=== PATIENT | female | born 1985 | race Caucasian/White ===

== ENCOUNTER 2016-10-11 14:07 | Emergency (ER) | payer OTHER ==
[~2016-10-11 14:07] MED LIST: ACET25TA PO; ACET50CA PO; ADV100INH INH; ALBU17IN INH; AUGM875T27 PO; BENA25CA2 PO; CIPR-250 PO; FAMO1TAB11 PO; FEXO180T58 PO; FLUTISP; IBUP200C PO; KEPP500T6 PO; METF500T PO; TOPA25TA10 PO; TRAZ50TA4 PO; VICO5TAB16 PO; [UNRECOGNIZED DRUG - OTHER] PO
[2016-10-11] MEDS ORDERED: IPRATROPIUM 0.5MG/ALBUTEROL 2.5MG INH SOL UD 3ML (DUONEB)(J7620) As Ordered ONE (14:53)
--- NOTE | 2016-10-11 14:53 | REP ---
Chest x-ray: Two views. History: Fever and cough. Findings: The lungs are exposed at a somewhat lesser inspiratory level than on the comparison study June 02, 2016. No infiltrate is seen. Pleural angles are sharp. Heart size is normal. Pulmonary vasculature is not increased. Impression: No active disease. Signed by Jay Acuña MD 10/11/2016 02:44 P
[2016-10-11] MEDS ORDERED: ONDANSETRON 4MG/2ML VIAL (J2405) As Ordered ONE (14:56)
[2016-10-11] MEDS ORDERED: methylPREDNISolone INJ 125 MG/2 ML VIAL (J2930) As Ordered ONE (14:56)
[2016-10-11 15:33] LABS: BASO % 0.5 % (0.0-1.0); EOS # 0.2 K/mm3 (0.0-0.50); EOS % 2.6 % (0.0-3.0); LARGE UNSTAINED CELL # 0.2 K/mm3 (0.0-0.4); LARGE UNSTAINED CELL % 3.5 % (0.0-4.0); LYMPH # 1.4 K/mm3 (1.5-6.5); LYMPH % 21.2 % (24.0-44.0); MEAN CORPUSCULAR HEMOGLOBIN 28.1 pg (27.0-33.0); MEAN CORPUSCULAR HGB CONC 32.7 g/dl (32.0-36.5); MONO # 0.4 K/mm3 (0.0-0.8); MONO % 5.7 % (0.0-5.0); NEUTROPHILS # 4.3 K/mm3 (1.8-7.7); NEUTROPHILS % 66.6 % (36.0-66.0); PLATELET COUNT, AUTOMATED 212 k/mm3 (150-450); RED CELL DISTRIBUTION WIDTH 13.4 % (11.5-14.5); WHITE BLOOD COUNT 6.4 K/mm3 (4.0-10.0)
[2016-10-11] MEDS ORDERED: ACETAMINOPHEN 325 MG TAB As Ordered ONE (15:42)
[2016-10-11 15:49] LABS: ANION GAP 12 MEQ/L (8-16); BLOOD UREA NITROGEN 9 MG/DL (7-18); CARBON DIOXIDE LEVEL 26 MEQ/L (21-32); CHLORIDE LEVEL 102 MEQ/L (98-107); CREATININE FOR GFR 1.06 MG/DL (0.55-1.02); GLOMERULAR FILTRATION RATE > 60.0 (>60); GLUCOSE, FASTING 99 MG/DL (70-105); POTASSIUM SERUM 3.8 MEQ/L (3.5-5.1); SODIUM LEVEL 140 MEQ/L (136-145)
--- NOTE | 2016-10-11 16:06 | EDDOCDS ---
Physician Documentation [facility] Name: Erma Carter Age: 31 yrs Sex: Female : 1985 Arrival Date: 10/11/2016 Time: 14:07 Bed I3 / M3 Private MD: Jennifer Veloz NP Disposition: 10/11/16 15:54 Discharged to Home/Self Care. Impression: Unspecified asthma with (acute) exacerbation, Viral infection of unspecified site, Fever presenting with conditions classified elsewhere, Cough, Acute bronchospasm. - Condition is Stable. - Discharge Instructions: Asthma, Adult, Bronchospasm, Adult, Fever, Adult, Cough, Adult, [id number], How to Use a Nebulizer. - Prescriptions for Prednisone 20 mg Oral Tablet - take 3 tablets by ORAL route once daily for 4 days START ON 10/12/16; 12 tablet. Albuterol Sulfate 2.5 mg /3 mL (0.083 %) Inhalation Solution for Nebulization - inhale 1 unit by NEBULIZATION route 3-4 times daily As needed; 1 box. Home Nebulizer - Dx: ACUTE BRONCHOSPASM. Duration: PRN. benzonatate 200 mg Oral Capsule - take 1 capsule by ORAL route 3 times per day As needed; 30 capsule. - Medication Reconciliation, Local Pharmacy Hours form. - Follow up: Emergency Department; When: As needed; Reason: Worsening of conditions. Follow up: Private Physician; When: 2 - 3 days; Reason: Wound/Symptom Recheck, Recheck today's complaints, Continuance of care. - Problem is new. - Symptoms have improved. Historical: - Allergies: Latex (Anaphylaxis); - Home Meds: 1. diphenhydramine HCl 25 mg Oral cap 1 cap nightly 2. fexofenadine 180 mg Oral tab 1 tab once daily 3. levetiracetam 500 mg oral tab 1 tab 2 times per day 4. metformin 500 mg Oral tab 1 tab daily 5. trazodone 50 mg Oral tab 1 tab nightly 6. Tylenol 325 mg Oral tab 2 tabs every 4-6 hours as needed 7. Ventolin HFA 90 mcg/actuation Nebulizer HFAA 2 puffs every 4 hours as needed 8. acetazolamide 500 mg Oral cpER 1 cap once daily - PMHx: Asthma; Migraines; PCOS; psuedo tumor cerebri; Seasonal Allergies; hematoma (March 2015); - PSHx: brain surgery; - Social history: Smoking status: Patient states former smoker of tobacco. No barriers to communication noted, The patient speaks fluent Croatian, Speaks appropriately for age. - Family history: No immediate family members are acutely ill. - : The pt / caregiver states he / she is not on anticoagulants. Home medication list is obtained from the patient. - Exposure Risk Screening:: None identified. 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 2 in. (157.48 cm) (R); Pain 4/10; 15:57 BP 122 / 69; Pulse 92; Resp 18; Temp 97.6(O); Pulse Ox 98% on R/A; Pain 3/10; ct3 14:09 Body Mass Index 49.38 (122.47 kg, 157.48 cm) gr2 MDM: 14:36 IV Saline Lock ordered. dt4 14:36 Solu-MEDROL 125 mg IVP once ordered. dt4 14:36 Albuterol-Ipratropium 3 ml Inhalation once ordered. dt4 14:36 Ondansetron 4 mg IVP once ordered. dt4 14:36 Obtain sample by nasopharyngeal swab ordered. dt4 14:37 Chest, 2 View (pa\E\lat) Ordered. EDMS 14:37 CBC with Diff Ordered. EDMS 14:37 Basic Metabolic Profile Ordered. EDMS 14:37 -Influenza A&B Rapid Antigen - Nose Ordered. EDMS 14:38 Call Respiratory ordered. dt4 14:41 Call Respiratory complete. ct3 15:27 Financial registration complete. gjb 15:39 CBC with Diff Reviewed. dt4 15:39 -Influenza A&B Rapid Antigen - Nose Reviewed. dt4 15:39 Chest, 2 View (pa\E\lat) Reviewed. dt4 15:39 Acetaminophen Tablet 975 mg PO once ordered. dt4 15:51 [facility] Payment Agreement was scanned into [employer] and attached to record. gjb Administered Medications: 14:56 Drug: Albuterol-Ipratropium 3 ml [ipratropium-albuterol 0.5 mg-3 mg(2.5 mg base)/3 mL lb nebulization soln (3 mL)] Route: Inhalation; 15:10 Follow up: Response: Nebulizer completed; No significant change. lb 15:22 Drug: Ondansetron 4 mg [ondansetron HCl 2 mg/mL intravenous solution (2 mL)] Route: mb9 IVP; Site: left antecubital; 15:23 Drug: Solu-MEDROL 125 mg [Solu-Medrol 500 mg intravenous solution (125 mg)] Route: IVP; mb9 Site: left antecubital; 15:44 Drug: Acetaminophen 975 mg [acetaminophen 325 mg tablet (3 tabs)] Route: PO; dls Signatures: Dispatcher MedHost Liliane Hendrix RN RN dls Brenda Dennison RN RN kr3 Ann Nguyne, SUPPORTIVE EMPLOYMENT CASE MANAGER SUPPORTIVE EMPLOYMENT CASE MANAGER ct3 Ayana Higgins PA-C PANedra dt4 Yuri Hidalgo RN RN mario9 Lilliam Pickett Lindsay lb The chart was reviewed and I authenticate all verbal orders and agree with the evaluation and treatment provided.Attachments: 15:51 [facility] Payment Agreement torey MTDD
--- NOTE | 2016-10-11 16:06 | EDDOCDS ---
Nurse's Notes [facility] Name: Erma Carter Age: 31 yrs Sex: Female : 1985 Arrival Date: 10/11/2016 Time: 14:07 Bed I3 / M3 Private MD: Jennifer Veloz NP Diagnosis: Unspecified asthma with (acute) exacerbation;Viral infection of unspecified site;Fever presenting with conditions classified elsewhere;Cough;Acute bronchospasm Presentation: 10/11 14:15 Presenting complaint: Patient states: not feeling well for several days with nausea and kr3 vomiting. States probably has the flu. Adult Sepsis Screening: The patient does not have new or worsening altered mentation. Patient's respiratory rate is less than 22. Systolic blood pressure is greater than 100. Patient has a qSOFA score of 0- Negative Sepsis Screen. Suicide/Homicide risk assessment- the patient denies having any suicidal and/or homicidal ideations and does not present with any other emotional, behavioral or mental health complaints. Status: Patient is not a government service executive or dependent. Transition of care: patient was not received from another setting of care. 14:15 Acuity: JAISON Level 3 kr3 14:15 Method Of Arrival: Ambulance kr3 Triage Assessment: 14:17 General: Appears in no apparent distress, comfortable, Behavior is cooperative. Pain: kr3 Location: chest Pain currently is 5 out of 10 on a pain scale. HIV screening NA for this visit Offered previously. Neurological: Level of Consciousness is awake, alert. Respiratory: Airway is patent Respiratory effort is even, unlabored, Reports cough that is pain with cough. Derm: Skin is normal. 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 diphenhydramine HCl 25 mg Oral cap 1 cap nightly 2. fexofenadine 180 mg Oral tab 1 tab once daily 3. levetiracetam 500 mg oral tab 1 tab 2 times per day 4. metformin 500 mg Oral tab 1 tab daily 5. trazodone 50 mg Oral tab 1 tab nightly 6. Tylenol 325 mg Oral tab 2 tabs every 4-6 hours as needed 7. Ventolin HFA 90 mcg/actuation Nebulizer HFAA 2 puffs every 4 hours as needed 8. acetazolamide 500 mg Oral cpER 1 cap once daily - PMHx: Asthma; Migraines; PCOS; psuedo tumor cerebri; Seasonal Allergies; hematoma (March 2015); - PSHx: brain surgery; - Social history: Smoking status: Patient states former smoker of tobacco. No barriers to communication noted, The patient speaks fluent Albanian, Speaks appropriately for age. - Family history: No immediate family members are acutely ill. - : The pt / caregiver states he / she is not on anticoagulants. Home medication list is obtained from the patient. - Exposure Risk Screening:: None identified. Screenin:23 Screening information is obtained from the patient. Fall risk: No risks identified. mb9 Assistance ADL's: requires no assistance with activities of daily living. Abuse/DV Screen: The patient / caregiver reports he/she is: not in a situation that causes fear, pain or injury. Nutritional screening: No deficits noted. Advance Directives: There is no active DNR order. home support is adequate. Assessment: 15:23 General: Appears ill, Behavior is appropriate for age, cooperative. Respiratory: Airway mb9 is patent Respiratory effort is even, unlabored, Breath sounds are clear bilaterally. 16:05 GI: Abd is soft and non tender X 4 quads. dls Vital Signs: 14:09 BP 116 / 73; Pulse 103; Resp 18 S; Temp 100.1(O); Pulse Ox 92% on R/A; Weight 122.47 kg gr2 (R); Height 5 ft. 2 in. (157.48 cm) (R); Pain 4/10; 15:57 BP 122 / 69; Pulse 92; Resp 18; Temp 97.6(O); Pulse Ox 98% on R/A; Pain 3/10; ct3 14:09 Body Mass Index 49.38 (122.47 kg, 157.48 cm) gr2 Vitals: 14:09 Log In Time: October 11, 2016 at 14:09. gr2 ED Course: 14:09 Patient visited by Arnaldo Tovar. gr2 14:09 Jennifer Veloz is Private Physician. gr2 14:09 Patient moved to Waiting gr2 14:12 Patient visited by Arnaldo Tovar. gr2 14:12 Patient moved to Pre RCE gr2 14:16 Triage Initiated kr3 14:24 Liliane Culp, RN is Primary Nurse. js13 14:24 Patient moved to I3 / M3 js13 14:26 Ayana Higgins [facility]-C [facility]. dt4 14:26 Efrain Sandoval MD is Attending Physician. dt4 14:26 Patient visited by Ayana Higgins PA-C. dt4 14:52 -Influenza A&B Rapid Antigen - Nose Sent. dls 15:12 Chest, 2 View (pa\E\lat) Returned. EDMS 15:21 Patient visited by Yuri Hidalgo RN. mb9 15:22 Basic Metabolic Profile Sent. mb9 15:23 The patient / caregiver is instructed regarding the plan of care and ED course. mb9 15:23 CBC with Diff Sent. mb9 15:23 Inserted saline lock: 18 gauge in left antecubital area and blood collected. The mb9 patient tolerated the procedure well. 15:51 [facility] Payment Agreement was scanned into [employer] and attached to record. gjb 15:58 Patient visited by Ann Nguyen PCA. ct3 16:04 Discontinued IV lock intact, bleeding controlled, pressure dressing applied, No dls redness/swelling at site. No procedures done that require assistance. Administered Medications: 14:56 Drug: Albuterol-Ipratropium 3 ml [ipratropium-albuterol 0.5 mg-3 mg(2.5 mg base)/3 mL lb nebulization soln (3 mL)] Route: Inhalation; 15:10 Follow up: Response: Nebulizer completed; No significant change. lb 15:22 Drug: Ondansetron 4 mg [ondansetron HCl 2 mg/mL intravenous solution (2 mL)] Route: mb9 IVP; Site: left antecubital; 15:23 Drug: Solu-MEDROL 125 mg [Solu-Medrol 500 mg intravenous solution (125 mg)] Route: IVP; mb9 Site: left antecubital; 15:44 Drug: Acetaminophen 975 mg [acetaminophen 325 mg tablet (3 tabs)] Route: PO; dls RT: 14:56 Initial Med Neb Given as ordered Patient was instructed and evaluated on procedure lb Patient tolerated procedure well without adverse effect. Respiratory: Breath sounds are clear bilaterally. Order Results: Lab Order: CBC with Diff; SPEC'M 10/11/16 14:47 Test: WHITE BLOOD COUNT; Value: 6.4; Range: 4.0-10.0; Units: K/mm3; Status: F Test: RED BLOOD COUNT; Value: 5.24; Range: 4.00-5.40; Units: M/mm3; Status: F Test: HEMOGLOBIN; Value: 14.7; Range: 12.0-16.0; Units: g/dl; Status: F Test: HEMATOCRIT; Value: 45.0; Range: 36.0-47.0; Units: %; Status: F Test: MEAN CORPUSCULAR VOLUME; Value: 86.0; Range: 80.0-96.0; Units: fl; Status: F Test: MEAN CORPUSCULAR HEMOGLOBIN; Value: 28.1; Range: 27.0-33.0; Units: pg; Status: F Test: MEAN CORPUSCULAR HGB CONC; Value: 32.7; Range: 32.0-36.5; Units: g/dl; Status: F Test: RED CELL DISTRIBUTION WIDTH; Value: 13.4; Range: 11.5-14.5; Units: %; Status: F Test: PLATELET COUNT, AUTOMATED; Value: 212; Range: 150-450; Units: k/mm3; Status: F Test: NEUTROPHILS %; Value: 66.6; Range: 36.0-66.0; Abnormal: Above high normal; Units: %; Status: F Test: LYMPH %; Value: 21.2; Range: 24.0-44.0; Abnormal: Below low normal; Units: %; Status: F Test: MONO %; Value: 5.7; Range: 0.0-5.0; Abnormal: Above high normal; Units: %; Status: F Test: EOS %; Value: 2.6; Range: 0.0-3.0; Units: %; Status: F Test: BASO %; Value: 0.5; Range: 0.0-1.0; Units: %; Status: F Test: LARGE UNSTAINED CELL %; Value: 3.5; Range: 0.0-4.0; Units: %; Status: F Test: NEUTROPHILS #; Value: 4.3; Range: 1.8-7.7; Units: K/mm3; Status: F Test: LYMPH #; Value: 1.4; Range: 1.5-6.5; Abnormal: Below low normal; Units: K/mm3; Status: F Test: MONO #; Value: 0.4; Range: 0.0-0.8; Units: K/mm3; Status: F Test: EOS #; Value: 0.2; Range: 0.0-0.50; Units: K/mm3; Status: F Test: BASO #; Value: 0.0; Range: 0.0-0.2; Units: K/mm3; Status: F Test: LARGE UNSTAINED CELL #; Value: 0.2; Range: 0.0-0.4; Units: K/mm3; Status: F Lab Order: Basic Metabolic Profile; [facility]10/11/16 14:47 Test: GLUCOSE, FASTING; Value: 99; Range: 70-105; Units: MG/DL; Status: F Test: BLOOD UREA NITROGEN; Value: 9; Range: 7-18; Units: MG/DL; Status: F Test: CREATININE FOR GFR; Value: 1.06; Range: 0.55-1.02; Abnormal: Above high normal; Units: MG/DL; Status: F Test: GLOMERULAR FILTRATION RATE; Value: > 60.0; Range: >60; Status: F Test: SODIUM LEVEL; Value: 140; Range: 136-145; Units: MEQ/L; Status: F Test: POTASSIUM SERUM; Value: 3.8; Range: 3.5-5.1; Units: MEQ/L; Status: F Test: CHLORIDE LEVEL; Value: 102; Range: 98-107; Units: MEQ/L; Status: F Test: CARBON DIOXIDE LEVEL; Value: 26; Range: 21-32; Units: MEQ/L; Status: F Test: ANION GAP; Value: 12; Range: 8-16; Units: MEQ/L; Status: F Test: CALCIUM LEVEL; Value: 9.0; Range: 8.5-10.1; Units: MG/DL; Status: F Test Note: ; Units are mL/min/1.73 m2 Chronic Kidney Disease Staging per NKF: Stage I & II GFR >=60 Normal to Mildly Decreased Stage III GFR 30-59 Moderately Decreased Stage IV GFR 15-29 Severely Decreased Stage V GFR <15 Very Little GFR Left ESRD GFR <15 on WIND TUNNEL TECHNICIAN Lab Order: -Influenza A&B Rapid Antigen - Nose; SPEC'M 10/11/16 14:47 Test: INFLUENZA A RAPID SCR by ICA; Value: INFLUENZA A RESULTS NEGATIVE; Status: F Test: INFLUENZA A RAPID SCR by ICA; Value: Comments:; Status: F Test: INFLUENZA B RAPID SCR by ICA; Value: INFLUENZA B RESULTS NEGATIVE; Status: F Test Note: ; The Influenza test is a direct rapid immunoassay for the qualitative detection of Influenza viral antigen. Cell culture (Viral Culture) testing should be considered to confirm NEGATIVE results and to assist in detecting other viruses that can provide similar clinical symptoms. Please contact the lab within 24 hours ([phone]) if confirmatory testing is desired. Radiology Order: Chest, 2 View (pa\E\lat) Test: Chest, 2 View (pa\E\lat) REASON FOR EXAMINATION: fever;Cough; Chest x-ray: Two views.; ; History: Fever and cough.; ; Findings: The lungs are exposed at a somewhat lesser inspiratory level than on; the comparison study June 02, 2016. No infiltrate is seen. Pleural angles are; sharp. Heart size is normal. Pulmonary vasculature is not increased.; ; Impression:; ; No active disease.; ; ; Signed by; Jay Acuña MD 10/11/2016 02:44 P; Outcome: 15:54 Discharge ordered by Provider. dt4 16:04 Discharge Assessment: Patient awake, alert and oriented x 3. No cognitive and/or dls functional deficits noted. Patient verbalized understanding of disposition instructions. patient administered narcotics - no. The following High Risk Discharge criteria are identified: None. Discharged to home ambulatory, with significant other. Condition: stable. Discharge instructions given to patient, Instructed on discharge instructions, follow up and referral plans. medication usage, Demonstrated understanding of instructions, medications, Pt was receptive of discharge instructions/ teaching. Prescriptions given X 3. No special radiology studies were completed. Property sent home with patient. 16:05 Patient left the ED. dls Signatures: Dispatcher MedHost EDMS Liliane Culp RN RN dls Bickel, Lindsay lb Robie, Kathleen, RN RN kr3 Ann Nguyen, CONVERTIBLE POWER SHOVEL OPERATOR CONVERTIBLE POWER SHOVEL OPERATOR ct3 Nupur Talley RN RN js13 Arnaldo Tovar gr2 Ayana Higgins, PA-C PA-C dt4 Yuri Hidalgo,RN RN mb9 Lilliam Pickett MTDD
--- NOTE | 2016-10-13 17:06 | EDDOCDS ---
Physician Documentation [facility] Name: Erma Carter Age: 31 yrs Sex: Female : 1985 Arrival Date: 10/11/2016 Time: 14:07 Bed I3 / M3 Private MD: Jennifer Veloz NP Disposition: 10/11/16 15:54 Discharged to Home/Self Care. Impression: Unspecified asthma with (acute) exacerbation, Viral infection of unspecified site, Fever presenting with conditions classified elsewhere, Cough, Acute bronchospasm. - Condition is Stable. - Discharge Instructions: Asthma, Adult, Bronchospasm, Adult, Fever, Adult, Cough, Adult, [id number], How to Use a Nebulizer. - Prescriptions for Prednisone 20 mg Oral Tablet - take 3 tablets by ORAL route once daily for 4 days START ON 10/12/16; 12 tablet. Albuterol Sulfate 2.5 mg /3 mL (0.083 %) Inhalation Solution for Nebulization - inhale 1 unit by NEBULIZATION route 3-4 times daily As needed; 1 box. Home Nebulizer - Dx: ACUTE BRONCHOSPASM. Duration: PRN. benzonatate 200 mg Oral Capsule - take 1 capsule by ORAL route 3 times per day As needed; 30 capsule. - Medication Reconciliation, Local Pharmacy Hours form. - Follow up: Emergency Department; When: As needed; Reason: Worsening of conditions. Follow up: Private Physician; When: 2 - 3 days; Reason: Wound/Symptom Recheck, Recheck today's complaints, Continuance of care. - Problem is new. - Symptoms have improved. Historical: - Allergies: Latex (Anaphylaxis); - Home Meds: 1. diphenhydramine HCl 25 mg Oral cap 1 cap nightly 2. fexofenadine 180 mg Oral tab 1 tab once daily 3. levetiracetam 500 mg oral tab 1 tab 2 times per day 4. metformin 500 mg Oral tab 1 tab daily 5. trazodone 50 mg Oral tab 1 tab nightly 6. Tylenol 325 mg Oral tab 2 tabs every 4-6 hours as needed 7. Ventolin HFA 90 mcg/actuation Nebulizer HFAA 2 puffs every 4 hours as needed 8. acetazolamide 500 mg Oral cpER 1 cap once daily - PMHx: Asthma; Migraines; PCOS; psuedo tumor cerebri; Seasonal Allergies; hematoma (March 2015); - PSHx: brain surgery; - Social history: Smoking status: Patient states former smoker of tobacco. No barriers to communication noted, The patient speaks fluent Burundian, Speaks appropriately for age. - Family history: No immediate family members are acutely ill. - : The pt / caregiver states he / she is not on anticoagulants. Home medication list is obtained from the patient. - Exposure Risk Screening:: None identified. 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 2 in. (157.48 cm) (R); Pain 4/10; 15:57 BP 122 / 69; Pulse 92; Resp 18; Temp 97.6(O); Pulse Ox 98% on R/A; Pain 3/10; ct3 14:09 Body Mass Index 49.38 (122.47 kg, 157.48 cm) gr2 MDM: 14:36 IV Saline Lock ordered. dt4 14:36 Solu-MEDROL 125 mg IVP once ordered. dt4 14:36 Albuterol-Ipratropium 3 ml Inhalation once ordered. dt4 14:36 Ondansetron 4 mg IVP once ordered. dt4 14:36 Obtain sample by nasopharyngeal swab ordered. dt4 14:37 Chest, 2 View (pa\E\lat) Ordered. EDMS 14:37 CBC with Diff Ordered. EDMS 14:37 Basic Metabolic Profile Ordered. EDMS 14:37 -Influenza A&B Rapid Antigen - Nose Ordered. EDMS 14:38 Call Respiratory ordered. dt4 14:41 Call Respiratory complete. ct3 15:27 Financial registration complete. gjb 15:39 CBC with Diff Reviewed. dt4 15:39 -Influenza A&B Rapid Antigen - Nose Reviewed. dt4 15:39 Chest, 2 View (pa\E\lat) Reviewed. dt4 15:39 Acetaminophen Tablet 975 mg PO once ordered. dt4 15:51 [facility] Payment Agreement was scanned into [employer] and attached to record. gjb 21:26 T-Sheet-- Draft Copy was scanned into [employer] and attached to record. klr Administered Medications: 14:56 Drug: Albuterol-Ipratropium 3 ml [ipratropium-albuterol 0.5 mg-3 mg(2.5 mg base)/3 mL lb nebulization soln (3 mL)] Route: Inhalation; 15:10 Follow up: Response: Nebulizer completed; No significant change. lb 15:22 Drug: Ondansetron 4 mg [ondansetron HCl 2 mg/mL intravenous solution (2 mL)] Route: mb9 IVP; Site: left antecubital; 15:23 Drug: Solu-MEDROL 125 mg [Solu-Medrol 500 mg intravenous solution (125 mg)] Route: IVP; mb9 Site: left antecubital; 15:44 Drug: Acetaminophen 975 mg [acetaminophen 325 mg tablet (3 tabs)] Route: PO; dls Signatures: Dispatcher MedHost EDLiliane Negro RN RN dls Brenda Dennison RN RN kr3 Ann Nguyen, RACK PUSHER RACK PUSHER ct3 Ayana Higgins, PA-C PA-C dt4 Yuri Hidalgo RN RN mario9 Lilliam Pickett Kathie klr Bickel, Lindsay lb The chart was reviewed and I authenticate all verbal orders and agree with the evaluation and treatment provided.Attachments: 15:51 [facility] Payment Agreement suad 21:26 T-Sheet-- Draft Copy [facility] Chart Complete MTDD
--- NOTE | 2016-10-13 17:06 | EDDOCDS ---
Nurse's Notes [facility] Name: Erma Carter Age: 31 yrs Sex: Female : 1985 Arrival Date: 10/11/2016 Time: 14:07 Bed I3 / M3 Private MD: Jennifer Veloz NP Diagnosis: Unspecified asthma with (acute) exacerbation;Viral infection of unspecified site;Fever presenting with conditions classified elsewhere;Cough;Acute bronchospasm Presentation: 10/11 14:15 Presenting complaint: Patient states: not feeling well for several days with nausea and kr3 vomiting. States probably has the flu. Adult Sepsis Screening: The patient does not have new or worsening altered mentation. Patient's respiratory rate is less than 22. Systolic blood pressure is greater than 100. Patient has a qSOFA score of 0- Negative Sepsis Screen. Suicide/Homicide risk assessment- the patient denies having any suicidal and/or homicidal ideations and does not present with any other emotional, behavioral or mental health complaints. Status: Patient is not a patient financial services coordinator or dependent. Transition of care: patient was not received from another setting of care. 14:15 Acuity: JAISON Level 3 kr3 14:15 Method Of Arrival: Ambulance kr3 Triage Assessment: 14:17 General: Appears in no apparent distress, comfortable, Behavior is cooperative. Pain: kr3 Location: chest Pain currently is 5 out of 10 on a pain scale. HIV screening NA for this visit Offered previously. Neurological: Level of Consciousness is awake, alert. Respiratory: Airway is patent Respiratory effort is even, unlabored, Reports cough that is pain with cough. Derm: Skin is normal. KNITTING INSPECTOR: 14:17 LMP 10/04/2016 kr3 Historical: - Allergies: Latex (Anaphylaxis); - Home Meds: 1. diphenhydramine HCl 25 mg Oral cap 1 cap nightly 2. fexofenadine 180 mg Oral tab 1 tab once daily 3. levetiracetam 500 mg oral tab 1 tab 2 times per day 4. metformin 500 mg Oral tab 1 tab daily 5. trazodone 50 mg Oral tab 1 tab nightly 6. Tylenol 325 mg Oral tab 2 tabs every 4-6 hours as needed 7. Ventolin HFA 90 mcg/actuation Nebulizer HFAA 2 puffs every 4 hours as needed 8. acetazolamide 500 mg Oral cpER 1 cap once daily - PMHx: Asthma; Migraines; PCOS; psuedo tumor cerebri; Seasonal Allergies; hematoma (March 2015); - PSHx: brain surgery; - Social history: Smoking status: Patient states former smoker of tobacco. No barriers to communication noted, The patient speaks fluent Chinese, Speaks appropriately for age. - Family history: No immediate family members are acutely ill. - : The pt / caregiver states he / she is not on anticoagulants. Home medication list is obtained from the patient. - Exposure Risk Screening:: None identified. Screenin:23 Screening information is obtained from the patient. Fall risk: No risks identified. mb9 Assistance ADL's: requires no assistance with activities of daily living. Abuse/DV Screen: The patient / caregiver reports he/she is: not in a situation that causes fear, pain or injury. Nutritional screening: No deficits noted. Advance Directives: There is no active DNR order. home support is adequate. Assessment: 15:23 General: Appears ill, Behavior is appropriate for age, cooperative. Respiratory: Airway mb9 is patent Respiratory effort is even, unlabored, Breath sounds are clear bilaterally. 16:05 GI: Abd is soft and non tender X 4 quads. dls Vital Signs: 14:09 BP 116 / 73; Pulse 103; Resp 18 S; Temp 100.1(O); Pulse Ox 92% on R/A; Weight 122.47 kg gr2 (R); Height 5 ft. 2 in. (157.48 cm) (R); Pain 4/10; 15:57 BP 122 / 69; Pulse 92; Resp 18; Temp 97.6(O); Pulse Ox 98% on R/A; Pain 3/10; ct3 14:09 Body Mass Index 49.38 (122.47 kg, 157.48 cm) gr2 Vitals: 14:09 Log In Time: October 11, 2016 at 14:09. gr2 ED Course: 14:09 Patient visited by Arnaldo Tovar. gr2 14:09 Jennifer Veloz is Private Physician. gr2 14:09 Patient moved to Waiting gr2 14:12 Patient visited by Arnaldo Tovar. gr2 14:12 Patient moved to Pre RCE gr2 14:16 Triage Initiated kr3 14:24 Liliane Culp, RN is Primary Nurse. js13 14:24 Patient moved to I3 / M3 js13 14:26 [facility] dt4 14:26 Efrain Sandoval MD is Attending Physician. dt4 14:26 Patient visited by Ayana Higgins PA-C. dt4 14:52 -Influenza A&B Rapid Antigen - Nose Sent. dls 15:12 Chest, 2 View (pa\E\lat) Returned. EDMS 15:21 Patient visited by Yuri Hidalgo RN. mb9 15:22 Basic Metabolic Profile Sent. mb9 15:23 The patient / caregiver is instructed regarding the plan of care and ED course. mb9 15:23 CBC with Diff Sent. mb9 15:23 Inserted saline lock: 18 gauge in left antecubital area and blood collected. The mb9 patient tolerated the procedure well. 15:51 [facility] Payment Agreement was scanned into [employer] and attached to record. gjb 15:58 Patient visited by Ann Nguyen PCA. ct3 16:04 Discontinued IV lock intact, bleeding controlled, pressure dressing applied, No dls redness/swelling at site. No procedures done that require assistance. 21:26 T-Sheet-- Draft Copy was scanned into [employer] and attached to record. klr Administered Medications: 14:56 Drug: Albuterol-Ipratropium 3 ml [ipratropium-albuterol 0.5 mg-3 mg(2.5 mg base)/3 mL lb nebulization soln (3 mL)] Route: Inhalation; 15:10 Follow up: Response: Nebulizer completed; No significant change. lb 15:22 Drug: Ondansetron 4 mg [ondansetron HCl 2 mg/mL intravenous solution (2 mL)] Route: mb9 IVP; Site: left antecubital; 15:23 Drug: Solu-MEDROL 125 mg [Solu-Medrol 500 mg intravenous solution (125 mg)] Route: IVP; mb9 Site: left antecubital; 15:44 Drug: Acetaminophen 975 mg [acetaminophen 325 mg tablet (3 tabs)] Route: PO; dls RT: 14:56 Initial Med Neb Given as ordered Patient was instructed and evaluated on procedure lb Patient tolerated procedure well without adverse effect. Respiratory: Breath sounds are clear bilaterally. Order Results: Lab Order: CBC with Diff; SPEC'M 10/11/16 14:47 Test: WHITE BLOOD COUNT; Value: 6.4; Range: 4.0-10.0; Units: K/mm3; Status: F Test: RED BLOOD COUNT; Value: 5.24; Range: 4.00-5.40; Units: M/mm3; Status: F Test: HEMOGLOBIN; Value: 14.7; Range: 12.0-16.0; Units: g/dl; Status: F Test: HEMATOCRIT; Value: 45.0; Range: 36.0-47.0; Units: %; Status: F Test: MEAN CORPUSCULAR VOLUME; Value: 86.0; Range: 80.0-96.0; Units: fl; Status: F Test: MEAN CORPUSCULAR HEMOGLOBIN; Value: 28.1; Range: 27.0-33.0; Units: pg; Status: F Test: MEAN CORPUSCULAR HGB CONC; Value: 32.7; Range: 32.0-36.5; Units: g/dl; Status: F Test: RED CELL DISTRIBUTION WIDTH; Value: 13.4; Range: 11.5-14.5; Units: %; Status: F Test: PLATELET COUNT, AUTOMATED; Value: 212; Range: 150-450; Units: k/mm3; Status: F Test: NEUTROPHILS %; Value: 66.6; Range: 36.0-66.0; Abnormal: Above high normal; Units: %; Status: F Test: LYMPH %; Value: 21.2; Range: 24.0-44.0; Abnormal: Below low normal; Units: %; Status: F Test: MONO %; Value: 5.7; Range: 0.0-5.0; Abnormal: Above high normal; Units: %; Status: F Test: EOS %; Value: 2.6; Range: 0.0-3.0; Units: %; Status: F Test: BASO %; Value: 0.5; Range: 0.0-1.0; Units: %; Status: F Test: LARGE UNSTAINED CELL %; Value: 3.5; Range: 0.0-4.0; Units: %; Status: F Test: NEUTROPHILS #; Value: 4.3; Range: 1.8-7.7; Units: K/mm3; Status: F Test: LYMPH #; Value: 1.4; Range: 1.5-6.5; Abnormal: Below low normal; Units: K/mm3; Status: F Test: MONO #; Value: 0.4; Range: 0.0-0.8; Units: K/mm3; Status: F Test: EOS #; Value: 0.2; Range: 0.0-0.50; Units: K/mm3; Status: F Test: BASO #; Value: 0.0; Range: 0.0-0.2; Units: K/mm3; Status: F Test: LARGE UNSTAINED CELL #; Value: 0.2; Range: 0.0-0.4; Units: K/mm3; Status: F Lab Order: Basic Metabolic Profile; [facility] 10/11/16 14:47 Test: GLUCOSE, FASTING; Value: 99; Range: 70-105; Units: MG/DL; Status: F Test: BLOOD UREA NITROGEN; Value: 9; Range: 7-18; Units: MG/DL; Status: F Test: CREATININE FOR GFR; Value: 1.06; Range: 0.55-1.02; Abnormal: Above high normal; Units: MG/DL; Status: F Test: GLOMERULAR FILTRATION RATE; Value: > 60.0; Range: >60; Status: F Test: SODIUM LEVEL; Value: 140; Range: 136-145; Units: MEQ/L; Status: F Test: POTASSIUM SERUM; Value: 3.8; Range: 3.5-5.1; Units: MEQ/L; Status: F Test: CHLORIDE LEVEL; Value: 102; Range: 98-107; Units: MEQ/L; Status: F Test: CARBON DIOXIDE LEVEL; Value: 26; Range: 21-32; Units: MEQ/L; Status: F Test: ANION GAP; Value: 12; Range: 8-16; Units: MEQ/L; Status: F Test: CALCIUM LEVEL; Value: 9.0; Range: 8.5-10.1; Units: MG/DL; Status: F Test Note: ; Units are mL/min/1.73 m2 Chronic Kidney Disease Staging per NKF: Stage I & II GFR >=60 Normal to Mildly Decreased Stage III GFR 30-59 Moderately Decreased Stage IV GFR 15-29 Severely Decreased Stage V GFR <15 Very Little GFR Left ESRD GFR <15 on AUTO PARTS CLERK Lab Order: -Influenza A&B Rapid Antigen - Nose; SPEC'M 10/11/16 14:47 Test: INFLUENZA A RAPID SCR by ICA; Value: INFLUENZA A RESULTS NEGATIVE; Status: F Test: INFLUENZA A RAPID SCR by ICA; Value: Comments:; Status: F Test: INFLUENZA B RAPID SCR by ICA; Value: INFLUENZA B RESULTS NEGATIVE; Status: F Test Note: ; The Influenza test is a direct rapid immunoassay for the qualitative detection of Influenza viral antigen. Cell culture (Viral Culture) testing should be considered to confirm NEGATIVE results and to assist in detecting other viruses that can provide similar clinical symptoms. Please contact the lab within 24 hours ([phone]) if confirmatory testing is desired. Radiology Order: Chest, 2 View (pa\E\lat) Test: Chest, 2 View (pa\E\lat) REASON FOR EXAMINATION: fever;Cough; Chest x-ray: Two views.; ; History: Fever and cough.; ; Findings: The lungs are exposed at a somewhat lesser inspiratory level than on; the comparison study June 02, 2016. No infiltrate is seen. Pleural angles are; sharp. Heart size is normal. Pulmonary vasculature is not increased.; ; Impression:; ; No active disease.; ; ; Signed by; Jay Acuña MD 10/11/2016 02:44 P; Outcome: 15:54 Discharge ordered by Provider. dt4 16:04 Discharge Assessment: Patient awake, alert and oriented x 3. No cognitive and/or dls functional deficits noted. Patient verbalized understanding of disposition instructions. patient administered narcotics - no. The following High Risk Discharge criteria are identified: None. Discharged to home ambulatory, with significant other. Condition: stable. Discharge instructions given to patient, Instructed on discharge instructions, follow up and referral plans. medication usage, Demonstrated understanding of instructions, medications, Pt was receptive of discharge instructions/ teaching. Prescriptions given X 3. No special radiology studies were completed. Property sent home with patient. 16:05 Patient left the ED. dls Signatures: Dispatcher [employer] EDMS Liliane Culp RN RN dls Bickel, Lindsay lb Robie, Kathleen, RN RN kr3 Ann Nguyen, [place] ATTORNEY [place] ATTORNEY ct3 Nupur TalleyRN RN js13 Arnaldo Tovar gr2 Ayana Higgins, MAXWELL PANedra dt4 Yuri Hidalgo RN RN mb9 Lilliam Pickett Kathie klr Chart Complete MTDD
--- NOTE | 2016-10-13 17:06 | EDDOCDS ---
Physician Documentation [facility] Name: Erma Carter Age: 31 yrs Sex: Female : 1985 Arrival Date: 10/11/2016 Time: 14:07 Bed I3 / M3 Private MD: Jennifer Veloz NP Disposition: 10/11/16 15:54 Discharged to Home/Self Care. Impression: Unspecified asthma with (acute) exacerbation, Viral infection of unspecified site, Fever presenting with conditions classified elsewhere, Cough, Acute bronchospasm. - Condition is Stable. - Discharge Instructions: Asthma, Adult, Bronchospasm, Adult, Fever, Adult, Cough, Adult, [id number], How to Use a Nebulizer. - Prescriptions for Prednisone 20 mg Oral Tablet - take 3 tablets by ORAL route once daily for 4 days START ON 10/12/16; 12 tablet. Albuterol Sulfate 2.5 mg /3 mL (0.083 %) Inhalation Solution for Nebulization - inhale 1 unit by NEBULIZATION route 3-4 times daily As needed; 1 box. Home Nebulizer - Dx: ACUTE BRONCHOSPASM. Duration: PRN. benzonatate 200 mg Oral Capsule - take 1 capsule by ORAL route 3 times per day As needed; 30 capsule. - Medication Reconciliation, Local Pharmacy Hours form. - Follow up: Emergency Department; When: As needed; Reason: Worsening of conditions. Follow up: Private Physician; When: 2 - 3 days; Reason: Wound/Symptom Recheck, Recheck today's complaints, Continuance of care. - Problem is new. - Symptoms have improved. Historical: - Allergies: Latex (Anaphylaxis); - Home Meds: 1. diphenhydramine HCl 25 mg Oral cap 1 cap nightly 2. fexofenadine 180 mg Oral tab 1 tab once daily 3. levetiracetam 500 mg oral tab 1 tab 2 times per day 4. metformin 500 mg Oral tab 1 tab daily 5. trazodone 50 mg Oral tab 1 tab nightly 6. Tylenol 325 mg Oral tab 2 tabs every 4-6 hours as needed 7. Ventolin HFA 90 mcg/actuation Nebulizer HFAA 2 puffs every 4 hours as needed 8. acetazolamide 500 mg Oral cpER 1 cap once daily - PMHx: Asthma; Migraines; PCOS; psuedo tumor cerebri; Seasonal Allergies; hematoma (March 2015); - PSHx: brain surgery; - Social history: Smoking status: Patient states former smoker of tobacco. No barriers to communication noted, The patient speaks fluent Iraqi, Speaks appropriately for age. - Family history: No immediate family members are acutely ill. - : The pt / caregiver states he / she is not on anticoagulants. Home medication list is obtained from the patient. - Exposure Risk Screening:: None identified. 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 2 in. (157.48 cm) (R); Pain 4/10; 15:57 BP 122 / 69; Pulse 92; Resp 18; Temp 97.6(O); Pulse Ox 98% on R/A; Pain 3/10; ct3 14:09 Body Mass Index 49.38 (122.47 kg, 157.48 cm) gr2 MDM: 14:36 IV Saline Lock ordered. dt4 14:36 Solu-MEDROL 125 mg IVP once ordered. dt4 14:36 Albuterol-Ipratropium 3 ml Inhalation once ordered. dt4 14:36 Ondansetron 4 mg IVP once ordered. dt4 14:36 Obtain sample by nasopharyngeal swab ordered. dt4 14:37 Chest, 2 View (pa\E\lat) Ordered. EDMS 14:37 CBC with Diff Ordered. EDMS 14:37 Basic Metabolic Profile Ordered. EDMS 14:37 -Influenza A&B Rapid Antigen - Nose Ordered. EDMS 14:38 Call Respiratory ordered. dt4 14:41 Call Respiratory complete. ct3 15:27 Financial registration complete. gjb 15:39 CBC with Diff Reviewed. dt4 15:39 -Influenza A&B Rapid Antigen - Nose Reviewed. dt4 15:39 Chest, 2 View (pa\E\lat) Reviewed. dt4 15:39 Acetaminophen Tablet 975 mg PO once ordered. dt4 15:51 [facility] Payment Agreement was scanned into [employer] and attached to record. gjb 21:26 T-Sheet-- Draft Copy was scanned into [employer] and attached to record. klr Administered Medications: 14:56 Drug: Albuterol-Ipratropium 3 ml [ipratropium-albuterol 0.5 mg-3 mg(2.5 mg base)/3 mL lb nebulization soln (3 mL)] Route: Inhalation; 15:10 Follow up: Response: Nebulizer completed; No significant change. lb 15:22 Drug: Ondansetron 4 mg [ondansetron HCl 2 mg/mL intravenous solution (2 mL)] Route: mb9 IVP; Site: left antecubital; 15:23 Drug: Solu-MEDROL 125 mg [Solu-Medrol 500 mg intravenous solution (125 mg)] Route: IVP; mb9 Site: left antecubital; 15:44 Drug: Acetaminophen 975 mg [acetaminophen 325 mg tablet (3 tabs)] Route: PO; dls Signatures: Dispatcher [employer] EDLiliane Negro RN RN dls Brenda Dennison RN RN kr3 Ann Nguyen, FIELD SERVICE ENGINEER FIELD SERVICE ENGINEER ct3 Ayana Higgins, PA-C PA-C dt4 Yuri Hidalgo RN RN [email or web address] Lilliam Pickett Kathie klr Bickel, Lindsay lb The chart was reviewed and I authenticate all verbal orders and agree with the evaluation and treatment provided.Attachments: 15:51 [facility] Payment Agreement suad 21:26 T-Sheet-- Draft Copy [email or web address] Chart Complete MTDD
[2016-10-16] MEDS ORDERED: FLON1SPR (14:18)
== END 2016-10-11 16:05 | disposition home or self-care (01) ==
LOC: M ED 14:07
DX: J45.901 Unspecified asthma with (acute) exacerbation (principal); B34.9 Viral infection, unspecified; R05 Cough; R50.9 Fever, unspecified; G43.909 Migraine, unspecified, not intractable, without status migrainosus; E28.2 Polycystic ovarian syndrome; G93.2 Benign intracranial hypertension; Z87.891 Personal history of nicotine dependence; Z79.51 Long term (current) use of inhaled steroids; Z79.899 Other long term (current) drug therapy; Z91.040 Latex allergy status
CPT/HCPCS: 36415; 71020; 80048; 85025; 87804; 94640; 96374; 96375; 99284; J2405; J2930

== ENCOUNTER → 2016-10-20 | Outpatient (CLI) | payer OTHER ==
[~2016-10-20] MED LIST changes: +FLON1SPR
--- NOTE | 2016-10-20 14:33 | REP ---
SHUNT SERIES, FIVE VIEWS: HISTORY: Lumboperitoneal shunt. A lumboperitoneal shunt is present. The shunt enters the spinal canal at the L2-3 level. The proximal end of the shunt is present at the T11-12 level. The distal end of the shunt is present in the left upper quadrant. There is no shunt discontinuity. IMPRESSION: Lumboperitoneal shunt as described above. Signed by Edy Flores MD 10/20/2016 02:36 P
== END ==
LOC: M RAD 12:10
PROVIDERS: ATTEND Neurological Surgery
DX: G93.2 Benign intracranial hypertension (principal)

== ENCOUNTER → 2016-10-20 | Outpatient (CLI) | payer OTHER ==
--- NOTE | 2016-10-20 14:22 | REP ---
Chest two views HISTORY: Cough Comparison: 10/11/2016 The lungs are clear. The heart is normal in size. The pulmonary vasculature is normal in appearance. The bony structure is intact. IMPRESSION: No acute disease. Signed by Edy Flores MD 10/20/2016 02:14 P
== END ==
LOC: M RAD 12:38
PROVIDERS: ATTEND Physician Assistant
DX: Z01.811 Encounter for preprocedural respiratory examination (principal); G56.02 Carpal tunnel syndrome, left upper limb

== ENCOUNTER → 2016-11-02 | Day surgery (SDC) | payer OTHER ==
[~2016-11-02] VITALS: Ht 160 cm; Wt 122.5 kg
[~2016-11-02] MED LIST changes: +LIDOCAINE 1% SDV INJ 30 ML VIAL As Ordered ONE; +LIDOCAINE 1% SDV INJ 30 ML VIAL XX ONE; +LIDOCAINE 2% INJ 100 MG/5 ML SDV (FOR ANES.) As Ordered ONE; +LR 1,000 ML IV SCH; +MIDAZOLAM INJ 2 MG/2 ML VIAL (J2250) As Ordered ONE; +NORCO, ANEXSIA 5/325MG TABLET (HYDROcodone/ACETAMINOPHEN) PO PRN; +ONDANSETRON 4MG/2ML VIAL (J2405) IV PRN; +PROPOFOL 200 MG/20 ML VIAL As Ordered ONE; +fentaNYL 100 MCG/2 ML INJECTION (J3010) As Ordered ONE
[2016-11-02 07:49] LABS: CONTROL LINE UCG INT CTR LINE PRESENT
[2016-11-02 10:00] VITALS: BP 118/58
--- NOTE | 2016-11-02 17:12 | RO ---
DATE OF PROCEDURE: 11/02/2016 PREOPERATIVE DIAGNOSIS: Left carpal tunnel syndrome. POSTOPERATIVE DIAGNOSIS: Left carpal tunnel syndrome. OPERATIVE PROCEDURE: Left carpal tunnel release. SURGEON: Tucker Mota MD PRIMER WATERPROOFING MACHINE OPERATOR: Otto Cosme ANESTHESIA: Local with sedation. ESTIMATED BLOOD LOSS: Minimal. COMPLICATIONS: None. INDICATIONS: This is a 31-year-old morbidly obese woman who has had some persistent numbness in her hands, left greater than right. Electromyogram (EMG) nerve conduction study was positive for carpal tunnel syndrome and she wished to proceed with surgical release. She understood the nature of the procedure, risks of bleeding, infection, damage to nerves, vessels, persistent pain, recurrent stiffness, among others. She understood because hers was severe compression that the prognosis is a little bit more unpredictable. DESCRIPTION OF PROCEDURE: The patient taken to the operating room and placed in the supine position after sedation was introduced. Under sterile conditions I injected some 1% plain lidocaine to the proximal ulnar palm of the left hand after time-out was performed. Prepped and draped the left hand in the usual sterile fashion and I created a longitudinal incision over the proximal ulnar palm. Blunt dissection was carried down through the subcutaneous tissue until the transverse carpal ligament was encountered. This was incised longitudinally with a #15 blade entering the ulnar border of the carpal tunnel. It was evident that she had significant compression and there was a little thinning of the nerve in the midportion of the carpal tunnel. I then protected the median nerve and completed the dissection proximally and distally, protected the median nerve of the [place]. I used a small dissecting scissor and a #15 blade to free up the median nerve. Care was taken to protect the nerve. I then palpated with a small finger once I had released it and confirmed there was an appropriate release. I irrigated copiously. Again identified the median nerve. There was some reperfusion to it, but again a little atrophy and thinning in the midportion of the nerve. I closed skin with a #5-0 nylon suture. Sterile dressing was applied. Tourniquet was deflated. She was taken to recovery room in stable condition. There were no known complications. The plan will be routine postoperative.
== END | disposition home or self-care (01) ==
LOC: M SDC 06:46
PROVIDERS: ATTEND Orthopaedic Surgery
DX: G56.02 Carpal tunnel syndrome, left upper limb (principal); K76.0 Fatty (change of) liver, not elsewhere classified; K21.9 Gastro-esophageal reflux disease without esophagitis; Z79.899 Other long term (current) drug therapy; J45.909 Unspecified asthma, uncomplicated; Z79.51 Long term (current) use of inhaled steroids; Z91.040 Latex allergy status
CPT/HCPCS: 64721; 84703; J0690; J2250; J3010

== ENCOUNTER 2016-11-11 11:49 | Emergency (ER) | payer OTHER | END 2016-11-11 13:45 | disposition left against medical advice (07) | LOC: M ED 11:49 | DX: R31.9 Hematuria, unspecified (principal); Z53.29 Procedure and treatment not carried out because of patient's decision for other reasons ==

== ENCOUNTER → 2016-11-11 | Outpatient (REF) | payer OTHER ==
[~2016-11-11] MED LIST changes: -LIDOCAINE 1% SDV INJ 30 ML VIAL As Ordered ONE; -LIDOCAINE 1% SDV INJ 30 ML VIAL XX ONE; -LIDOCAINE 2% INJ 100 MG/5 ML SDV (FOR ANES.) As Ordered ONE; -LR 1,000 ML IV SCH; -MIDAZOLAM INJ 2 MG/2 ML VIAL (J2250) As Ordered ONE; -NORCO, ANEXSIA 5/325MG TABLET (HYDROcodone/ACETAMINOPHEN) PO PRN; -ONDANSETRON 4MG/2ML VIAL (J2405) IV PRN; -PROPOFOL 200 MG/20 ML VIAL As Ordered ONE; -fentaNYL 100 MCG/2 ML INJECTION (J3010) As Ordered ONE
[2016-11-11 17:58] LABS: CONTROL LINE UCG INT CTR LINE PRESENT
== END ==
LOC: M LAB REF 16:38
PROVIDERS: ATTEND Physician Assistant
DX: N93.9 Abnormal uterine and vaginal bleeding, unspecified (principal)

== ENCOUNTER → 2016-11-12 | Outpatient (CLI) | payer OTHER ==
--- NOTE | 2016-11-12 11:16 | REP ---
Pelvic sonogram: History: Heavy vaginal bleeding. Findings: Transabdominal and transvaginal scanning are performed. Comparison study is from September 02, 2015. Uterine dimensions are normal at 9.6 x 3.9 x 5.3 cm. Endometrial echo is 1.4 cm thick and centrally placed. No free fluid is seen. No focal uterine mass is observed. The right ovary measures 3.7 x 3.6 x 3.2 cm. There is a 2.1 x 1.7 x 2.4 cm follicle cyst in the right ovary. Its Doppler flow is normal. Resistive index in the right ovary is normal at 0.47. The left ovary measures 4.1 x 2.8 x 3.4 cm. There is a 3.2 x 2.6 x 2.0 cm involuting cyst in the left ovary. No other abnormality. Impression: 3.2 cm involuting cyst left ovary. Otherwise unremarkable pelvic sonography. Signed by Jay Acuña MD 11/12/2016 12:25 P
== END ==
LOC: M RAD 10:34
PROVIDERS: ATTEND Physician Assistant
DX: R10.2 Pelvic and perineal pain (principal); N92.0 Excessive and frequent menstruation with regular cycle; N83.202 Unspecified ovarian cyst, left side

== ENCOUNTER → 2016-11-23 | Outpatient (CLI) | payer OTHER ==
[2016-11-23 11:07] LABS: MEAN CORPUSCULAR HEMOGLOBIN 28.2 pg (27.0-33.0)
== END ==
LOC: M LAB 10:37
PROVIDERS: ATTEND Nurse Practitioner Family
DX: N92.1 Excessive and frequent menstruation with irregular cycle (principal)

== ENCOUNTER 2016-12-04 21:56 | Emergency (ER) | payer OTHER ==
[~2016-12-04] VITALS: Ht 160 cm; Wt 127.0 kg
[2016-12-04] MEDS ORDERED: NAPR500T PO (23:06)
[2016-12-04 23:32] VITALS: BP 129/81
== END 2016-12-04 23:39 | disposition home or self-care (01) ==
LOC: M ED 23:05
DX: S60.222A Contusion of left hand, initial encounter (principal); W19.XXXA Unspecified fall, initial encounter; Y93.89 Activity, other specified; Y99.8 Other external cause status; Z98.890 Other specified postprocedural states; Z91.040 Latex allergy status; Z87.891 Personal history of nicotine dependence; Z79.899 Other long term (current) drug therapy; Z79.51 Long term (current) use of inhaled steroids

== ENCOUNTER → 2016-12-31 | Outpatient (CLI) | payer OTHER ==
[~2016-12-31] MED LIST changes: +NAPR500T PO
[2016-12-31 14:34] LABS: ALBUMIN 3.8 GM/DL (3.2-5.2); ALKALINE PHOSPHATASE 79 U/L (45-117); ALT/SGPT 61 U/L (12-78); ANION GAP 7 MEQ/L (8-16); AST/SGOT 47 U/L (15-37); BILIRUBIN,TOTAL 0.7 MG/DL (0.2-1.0); BLOOD UREA NITROGEN 10 MG/DL (7-18); CALCIUM LEVEL 8.9 MG/DL (8.5-10.1); CARBON DIOXIDE LEVEL 27 MEQ/L (21-32); CHLORIDE LEVEL 106 MEQ/L (98-107); FREE T4 1.22 NG/DL (0.76-1.46); GLOMERULAR FILTRATION RATE > 60.0 (>60); GLUCOSE, FASTING 91 MG/DL (70-105); MAGNESIUM LEVEL 2.4 MG/DL (1.8-2.4); POTASSIUM SERUM 4.2 MEQ/L (3.5-5.1); SODIUM LEVEL 140 MEQ/L (136-145); TOTAL PROTEIN 7.6 GM/DL (6.4-8.2)
== END ==
LOC: M LAB 12:49
PROVIDERS: ATTEND Nurse Practitioner Family
DX: E88.81 Metabolic syndrome and other insulin resistance (principal); K21.9 Gastro-esophageal reflux disease without esophagitis; E55.9 Vitamin D deficiency, unspecified

== ENCOUNTER → 2016-12-31 | Outpatient (REF) | payer OTHER | LOC: M SFHCPLAZ 11:21 | PROVIDERS: ATTEND Nurse Practitioner Family | DX: E88.81 Metabolic syndrome and other insulin resistance (principal); K21.9 Gastro-esophageal reflux disease without esophagitis; E55.9 Vitamin D deficiency, unspecified; Z53.9 Procedure and treatment not carried out, unspecified reason ==

== ENCOUNTER 2017-01-21 13:42 | Emergency (ER) | payer OTHER ==
[~2017-01-21] VITALS: Ht 160 cm; Wt 122.5 kg
[2017-01-21] MEDS ORDERED: CYCLOBENZAPRINE 10 MG TAB PO ONE (14:45)
[2017-01-21] MEDS ORDERED: methylPREDNISolone INJ 125 MG/2 ML VIAL (J2930) IM ONE (14:45)
[2017-01-21 15:18] VITALS: BP 121/76
[2017-01-21] MEDS ORDERED: PRED20TA PO (15:21)
[2017-01-21] MEDS ORDERED: CYCL10TA PO (15:22)
[2017-01-28] MEDS ORDERED: BENA25TA9 PO (14:22)
== END 2017-01-21 15:34 | disposition home or self-care (01) ==
LOC: M ED 14:18
DX: M54.32 Sciatica, left side (principal); G93.2 Benign intracranial hypertension; Z79.899 Other long term (current) drug therapy; Z79.51 Long term (current) use of inhaled steroids; Z91.040 Latex allergy status
CPT/HCPCS: 96372; 99282; J2930

== ENCOUNTER → 2017-01-28 | Day surgery (SDC) | payer OTHER ==
[~2017-01-28] VITALS: Ht 160 cm; Wt 122.5 kg
[~2017-01-28] MED LIST changes: +ACETAMINOPHEN 500 MG TAB PO ONE; +BENA25TA9 PO; +CYCL10TA PO; +KETOROLAC 30 MG/ML VIAL (J1885) As Ordered ONE; +KETOROLAC 30 MG/ML VIAL (J1885) IV PRN; +LIDOCAINE 1% MDV INJ 50 ML VIAL As Ordered ONE; +LR 1,000 ML IV SCH; +MIDAZOLAM INJ 2 MG/2 ML VIAL (J2250) As Ordered ONE; +ONDANSETRON 4MG/2ML VIAL (J2405) As Ordered ONE; +ONDANSETRON 4MG/2ML VIAL (J2405) IV PRN; +PERCOCET 5MG/325MG TAB PO PRN; +PRED20TA PO; +PROPOFOL 200 MG/20 ML VIAL As Ordered ONE; +dexameTHASONE 4 MG/ML 1ML VIAL (J1100) As Ordered ONE; +fentaNYL 100 MCG/2 ML INJECTION (J3010) As Ordered ONE; +fentaNYL 100 MCG/2 ML INJECTION (J3010) IV PRN
[2017-01-28 14:08] LABS: MEAN CORPUSCULAR HEMOGLOBIN 28.4 pg (27.0-33.0); MEAN CORPUSCULAR HGB CONC 33.6 g/dl (32.0-36.5); MEAN CORPUSCULAR VOLUME 84.5 fl (80.0-96.0); RED CELL DISTRIBUTION WIDTH 13.4 % (11.5-14.5); WHITE BLOOD COUNT 12.6 K/mm3 (4.0-10.0)
[2017-01-28 14:53] LABS: CONTROL LINE UCG INT CTR LINE PRESENT
[2017-01-28 21:02] VITALS: BP 138/79
--- NOTE | 2017-01-29 10:12 | RO ---
DATE OF PROCEDURE: 01/28/2017 PREPROCEDURE DIAGNOSIS: Menorrhagia. POSTPROCEDURE DIAGNOSIS: Menorrhagia. PROCEDURE: Hysteroscopy, dilatation and curettage. SURGEON: Dr. Edy Mazariegos SIX SIGMA BLACK BELT ENGINEER: ANESTHESIA: LMA. ESTIMATED BLOOD LOSS: Minimal. FINDINGS: Thickened endometrial lining, otherwise normal. DESCRIPTION OF PROCEDURE: The patient was taken to the operating room where IV sedation was given. Due to difficulty tolerating insertion of the speculum, LMA tube was inserted. Speculum was inserted. The cervix was injected with 20 mL of 1% lidocaine in a circumferential fashion. The anterior lip of the cervix was grasped with a tenaculum. The cervix was dilated with taper dilators. Diagnostic hysteroscope using normal saline as the distention medium was placed through the internal os. Visualization of the endometrial cavity revealed the findings noted above. The hysteroscope was removed. Sharp curettage was performed. All instruments were removed. Sponge and instrument counts were correct.
== END | disposition home or self-care (01) ==
LOC: M SDC 13:29
PROVIDERS: ATTEND Specialist
DX: N92.0 Excessive and frequent menstruation with regular cycle (principal); J45.909 Unspecified asthma, uncomplicated; Z91.040 Latex allergy status; E28.2 Polycystic ovarian syndrome; Z79.899 Other long term (current) drug therapy; E66.9 Obesity, unspecified; Z79.51 Long term (current) use of inhaled steroids
CPT/HCPCS: 36415; 58558; 84703; 85027; 88305; J1100; J1885; J2250; J2405; J3010

== ENCOUNTER 2017-03-14 07:20 | Emergency (ER) | payer OTHER ==
[~2017-03-14] VITALS: Ht 162.6 cm; Wt 127.5 kg
[~2017-03-14 07:20] MED LIST changes: -ACETAMINOPHEN 500 MG TAB PO ONE; -KETOROLAC 30 MG/ML VIAL (J1885) As Ordered ONE; -KETOROLAC 30 MG/ML VIAL (J1885) IV PRN; -LIDOCAINE 1% MDV INJ 50 ML VIAL As Ordered ONE; -LR 1,000 ML IV SCH; -MIDAZOLAM INJ 2 MG/2 ML VIAL (J2250) As Ordered ONE; -ONDANSETRON 4MG/2ML VIAL (J2405) As Ordered ONE; -ONDANSETRON 4MG/2ML VIAL (J2405) IV PRN; -PERCOCET 5MG/325MG TAB PO PRN; -PROPOFOL 200 MG/20 ML VIAL As Ordered ONE; -dexameTHASONE 4 MG/ML 1ML VIAL (J1100) As Ordered ONE; -fentaNYL 100 MCG/2 ML INJECTION (J3010) As Ordered ONE; -fentaNYL 100 MCG/2 ML INJECTION (J3010) IV PRN
[2017-03-14] MEDS ORDERED: CLOM50TA2 PO (07:35)
[2017-03-14] MEDS ORDERED: ONDANSETRON 4 MG ORAL DISINTEGRATING TAB (S0181) PO ONE (08:00)
[2017-03-14 08:24] LABS: BASO # 0.1 K/mm3 (0.0-0.2); BASO % 0.8 % (0.0-1.0); EOS # 0.2 K/mm3 (0.0-0.50); EOS % 2.1 % (0.0-3.0); LARGE UNSTAINED CELL # 0.2 K/mm3 (0.0-0.4); LYMPH # 2.3 K/mm3 (1.5-4.5); MEAN CORPUSCULAR HEMOGLOBIN 26.7 pg (27.0-33.0); MEAN CORPUSCULAR HGB CONC 32.1 g/dl (32.0-36.5); MEAN CORPUSCULAR VOLUME 83.1 fl (80.0-96.0); MONO # 0.4 K/mm3 (0.0-0.8); MONO % 5.3 % (0.0-5.0); NEUTROPHILS # 4.4 K/mm3 (1.8-7.7); NEUTROPHILS % 60.8 % (36.0-66.0); PLATELET COUNT, AUTOMATED 258 k/mm3 (150-450); RED CELL DISTRIBUTION WIDTH 14.6 % (11.5-14.5); WHITE BLOOD COUNT 7.2 K/mm3 (4.0-10.0)
[2017-03-14 08:27] LABS: CONTROL LINE HCG INT CTR LINE PRESENT
[2017-03-14 08:35] LABS: ALBUMIN 3.8 GM/DL (3.2-5.2); ALBUMIN/GLOBULIN RATIO 0.97 (1.00-1.93); ALKALINE PHOSPHATASE 70 U/L (45-117); ALT/SGPT 48 U/L (12-78); AMYLASE 52 U/L (25-115); ANION GAP 9 MEQ/L (8-16); AST/SGOT 32 U/L (15-37); BILIRUBIN,DIRECT < 0.1 MG/DL (0.0-0.2); BILIRUBIN,TOTAL 0.5 MG/DL (0.2-1.0); BLOOD UREA NITROGEN 15 MG/DL (7-18); CALCIUM LEVEL 8.7 MG/DL (8.5-10.1); CARBON DIOXIDE LEVEL 28 MEQ/L (21-32); CHLORIDE LEVEL 105 MEQ/L (98-107); CREATININE FOR GFR 1.01 MG/DL (0.55-1.02); GLOMERULAR FILTRATION RATE > 60.0 (>60); GLUCOSE, FASTING 100 MG/DL (70-105); POTASSIUM SERUM 4.2 MEQ/L (3.5-5.1); SODIUM LEVEL 142 MEQ/L (136-145); TOTAL PROTEIN 7.7 GM/DL (6.4-8.2)
[2017-03-14] MEDS ORDERED: ZOFR4TAB3 PO (09:46)
[2017-03-14 09:58] VITALS: BP 143/90
== END 2017-03-14 09:59 | disposition home or self-care (01) ==
LOC: M ED 08:00
DX: N83.01 Follicular cyst of right ovary (principal); N83.292 Other ovarian cyst, left side; N93.9 Abnormal uterine and vaginal bleeding, unspecified; R11.0 Nausea; R10.2 Pelvic and perineal pain; M54.5 Low back pain; J45.909 Unspecified asthma, uncomplicated; G93.2 Benign intracranial hypertension; Z98.2 Presence of cerebrospinal fluid drainage device; Z87.891 Personal history of nicotine dependence; Z79.51 Long term (current) use of inhaled steroids; Z79.899 Other long term (current) drug therapy; Z91.040 Latex allergy status

== ENCOUNTER → 2017-04-08 | Outpatient (REF) | payer OTHER ==
[~2017-04-08] MED LIST changes: +ACET250T2 PO; -ACET25TA PO; -AUGM875T27 PO; +AUGM875T28 PO; +BENA25TA10 PO; -BENA25TA9 PO; +CLOM50TA9 PO; -IBUP200C PO; +IBUP200C10 PO; +KEPP1TAB PO; -KEPP500T6 PO; -METF500T PO; +METF500T13 PO; +NAPR500T3 PO; +REGL10TA6 PO; +TOPA1TAB PO; -TOPA25TA10 PO; +TRAZ50TA11 PO; -TRAZ50TA4 PO; +ZOFR4TAB3 PO
== END ==
LOC: M SFHCPLAZ 11:35
PROVIDERS: ATTEND Nurse Practitioner Family
DX: R10.11 Right upper quadrant pain (principal); E55.9 Vitamin D deficiency, unspecified; Z53.9 Procedure and treatment not carried out, unspecified reason

== ENCOUNTER → 2017-04-09 | Outpatient (REF) | payer OTHER ==
[2017-04-09 12:13] LABS: BASO % 0.5 % (0.0-1.0); EOS # 0.2 K/mm3 (0.0-0.50); EOS % 2.4 % (0.0-3.0); LARGE UNSTAINED CELL # 0.1 K/mm3 (0.0-0.4); LARGE UNSTAINED CELL % 1.6 % (0.0-4.0); LYMPH # 2.4 K/mm3 (1.5-4.5); LYMPH % 36.5 % (24.0-44.0); MEAN CORPUSCULAR HEMOGLOBIN 24.8 pg (27.0-33.0); MEAN CORPUSCULAR HGB CONC 30.9 g/dl (32.0-36.5); MEAN CORPUSCULAR VOLUME 80.2 fl (80.0-96.0); MONO # 0.3 K/mm3 (0.0-0.8); MONO % 4.4 % (0.0-5.0); NEUTROPHILS # 3.4 K/mm3 (1.8-7.7); NEUTROPHILS % 54.5 % (36.0-66.0); PLATELET COUNT, AUTOMATED 263 k/mm3 (150-450); RED CELL DISTRIBUTION WIDTH 14.9 % (11.5-14.5); WHITE BLOOD COUNT 6.3 K/mm3 (4.0-10.0)
[2017-04-09 12:31] LABS: ALBUMIN 3.4 GM/DL (3.2-5.2); ALBUMIN/GLOBULIN RATIO 0.92 (1.00-1.93); ALKALINE PHOSPHATASE 62 U/L (45-117); ALT/SGPT 47 U/L (12-78); AMYLASE 32 U/L (25-115); ANION GAP 7 MEQ/L (8-16); AST/SGOT 30 U/L (15-37); BILIRUBIN,TOTAL 0.5 MG/DL (0.2-1.0); BLOOD UREA NITROGEN 14 MG/DL (7-18); CALCIUM LEVEL 8.8 MG/DL (8.5-10.1); CARBON DIOXIDE LEVEL 30 MEQ/L (21-32); CHLORIDE LEVEL 106 MEQ/L (98-107); CREATININE FOR GFR 1.03 MG/DL (0.55-1.02); FERRITIN 7 NG/ML (8-252); GLOMERULAR FILTRATION RATE > 60.0 (>60); GLUCOSE, FASTING 88 MG/DL (70-105); POTASSIUM SERUM 4.3 MEQ/L (3.5-5.1); SODIUM LEVEL 143 MEQ/L (136-145); TOTAL PROTEIN 7.1 GM/DL (6.4-8.2)
== END ==
LOC: M SFHCPLAZ 09:52
PROVIDERS: ATTEND Nurse Practitioner Family
DX: D50.9 Iron deficiency anemia, unspecified (principal); R10.11 Right upper quadrant pain; E55.9 Vitamin D deficiency, unspecified

== ENCOUNTER 2017-06-12 11:47 | Emergency (ER) | payer OTHER ==
[~2017-06-12] VITALS: Ht 160 cm; Wt 122.7 kg
[~2017-06-12 11:47] MED LIST changes: -NAPR500T3 PO; -REGL10TA6 PO
[2017-06-12] MEDS ORDERED: IBUP200C10 PO (11:55)
--- NOTE | 2017-06-12 14:28 | REP ---
Clinical: Clinical: Trauma with continued headache . Comparison: 07/09/2016 . Findings: The ventricles, sulci, and cisterns are normal in position and appearance. Hay-white differentiation is maintained. No acute intracranial hemorrhage, mass/mass effect, pathology or trauma/injury. No evidence for acute infarction. No extra-axial fluid collection. Calvarium is intact, and there is evidence for old right frontal andres hole. Paranasal sinuses and mastoid air cells are clear. Impression: Normal noncontrast head CT. No evidence for acute intracranial pathology or trauma/injury. Signed by Steve Fischer MD 06/12/2017 02:20 P
--- NOTE | 2017-06-12 14:30 | REP ---
Clinical: Trauma. Pain. Technique: Axial noncontrast images from the skull base to the thoracic inlet with coronal and sagittal re-formations Findings: Normal alignment is maintained. Straightening of normal lordosis may be secondary to positioning versus pain/spasm. Cervical vertebral bodies including transverse processes and spinous processes are intact and there is no evidence for acute fracture / compression injury or subluxation. Spinal canal is patent. Posterior elements are intact. Paravertebral soft tissues are normal. Impression: Normal noncontrast cervical spine CT. No evidence for acute pathology or trauma/injury. Signed by Steve Fischer MD 06/12/2017 02:21 P
[2017-06-12 14:54] VITALS: BP 139/76
[2017-06-12] MEDS ORDERED: NAPR500T3 PO (15:04)
== END 2017-06-12 15:16 | disposition home or self-care (01) ==
LOC: M ED 11:47
DX: S06.9X0A Unspecified intracranial injury without loss of consciousness, initial encounter (principal); W22.8XXA Striking against or struck by other objects, initial encounter; Y92.89 Other specified places as the place of occurrence of the external cause; Y93.89 Activity, other specified; Y99.8 Other external cause status; J45.909 Unspecified asthma, uncomplicated; G93.2 Benign intracranial hypertension; M54.9 Dorsalgia, unspecified; Z79.899 Other long term (current) drug therapy; Z79.51 Long term (current) use of inhaled steroids; Z91.040 Latex allergy status; Z87.891 Personal history of nicotine dependence

== ENCOUNTER 2017-06-26 09:07 | Emergency (ER) | payer OTHER ==
[~2017-06-26] VITALS: Ht 160 cm; Wt 122.7 kg
[~2017-06-26 09:07] MED LIST changes: +NAPR500T3 PO
[2017-06-26] MEDS ORDERED: NS 1,000 ML IV ONE (10:00)
[2017-06-26] MEDS ORDERED: ONDANSETRON 4MG/2ML VIAL (J2405) IV ONE (10:00)
[2017-06-26 10:39] LABS: ADD MORPHOLOGY? YES; BASO % 0.8 % (0.0-1.0); EOS % 0.9 % (0.0-3.0); LARGE UNSTAINED CELL # 0.1 K/mm3 (0.0-0.4); LARGE UNSTAINED CELL % 1.9 % (0.0-4.0); LYMPH # 1.8 K/mm3 (1.5-4.5); LYMPH % 28.8 % (24.0-44.0); MEAN CORPUSCULAR HEMOGLOBIN 22.3 pg (27.0-33.0); MEAN CORPUSCULAR HGB CONC 30.7 g/dl (32.0-36.5); MEAN CORPUSCULAR VOLUME 72.6 fl (80.0-96.0); MONO # 0.2 K/mm3 (0.0-0.8); MONO % 3.4 % (0.0-5.0); NEUTROPHILS # 3.9 K/mm3 (1.8-7.7); NEUTROPHILS % 64.2 % (36.0-66.0); PLATELET COUNT, AUTOMATED 318 k/mm3 (150-450); RED CELL DISTRIBUTION WIDTH 16.9 % (11.5-14.5); WHITE BLOOD COUNT 6.1 K/mm3 (4.0-10.0)
[2017-06-26 10:48] LABS: ALBUMIN 3.4 GM/DL (3.2-5.2); ALBUMIN/GLOBULIN RATIO 0.83 (1.00-1.93); ALKALINE PHOSPHATASE 70 U/L (45-117); ALT/SGPT 31 U/L (12-78); ANION GAP 6 MEQ/L (8-16); AST/SGOT 28 U/L (15-37); BILIRUBIN,DIRECT 0.1 MG/DL (0.0-0.2); BILIRUBIN,TOTAL 0.5 MG/DL (0.2-1.0); BLOOD UREA NITROGEN 12 MG/DL (7-18); CALCIUM LEVEL 8.1 MG/DL (8.5-10.1); CARBON DIOXIDE LEVEL 28 MEQ/L (21-32); CHLORIDE LEVEL 110 MEQ/L (98-107); CREATININE FOR GFR 1.01 MG/DL (0.55-1.02); GLOMERULAR FILTRATION RATE > 60.0 (>60); GLUCOSE, FASTING 90 MG/DL (70-105); POTASSIUM SERUM 3.8 MEQ/L (3.5-5.1); SODIUM LEVEL 144 MEQ/L (136-145); TOTAL PROTEIN 7.5 GM/DL (6.4-8.2)
[2017-06-26 10:50] LABS: HYPOCHROMASIA 1+; MICROCYTOSIS 1+
[2017-06-26 11:45] VITALS: BP 126/71
[2017-06-27] MEDS ORDERED: REGL10TA6 PO (12:16)
== END 2017-06-26 11:46 | disposition home or self-care (01) ==
LOC: M ED 09:07
DX: R11.2 Nausea with vomiting, unspecified (principal); R10.9 Unspecified abdominal pain
CPT/HCPCS: 80048; 80076; 81001; 81025; 83690; 85025; 96361; 96374; 99284; J2405

== ENCOUNTER 2017-06-27 09:34 | Emergency (ER) | payer OTHER ==
[~2017-06-27] VITALS: Ht 160 cm; Wt 122.7 kg
[2017-06-27] MEDS ORDERED: ONDANSETRON 4 MG ORAL DISINTEGRATING TAB (S0181) PO ONE (10:00)
[2017-06-27] MEDS ORDERED: REGL10TA6 PO (12:16)
[2017-06-27 12:23] VITALS: BP 121/75
== END 2017-06-27 12:24 | disposition home or self-care (01) ==
LOC: M ED 09:34
DX: R11.2 Nausea with vomiting, unspecified (principal); J45.909 Unspecified asthma, uncomplicated; Z79.899 Other long term (current) drug therapy; Z79.51 Long term (current) use of inhaled steroids; Z91.040 Latex allergy status

== ENCOUNTER → 2017-07-01 | Outpatient (REF) | payer OTHER ==
[~2017-07-01] MED LIST changes: +REGL10TA6 PO
== END ==
LOC: M LAB REF 10:14
PROVIDERS: ATTEND Physician Assistant
DX: R11.0 Nausea (principal)

== ENCOUNTER 2017-09-18 11:50 | Emergency (ER) | payer OTHER ==
[~2017-09-18] VITALS: Ht 160 cm; Wt 120.5 kg
--- NOTE | 2017-09-18 15:21 | REP ---
These loss of pelvic ultrasound: Comparison is 03/14/2017. The studies performed with transabdominal and Doppler ultrasound assessment. The bladder is nondistended. Decreasing sensitivity of the examination. The uterus is anteverted and normal size measuring 11.1 x 3.8 by 4.9 cm. The endometrium is not thickened measuring 9 mm. There is a right ovarian cyst measuring 8.0 x 6.7 x 5.6 cm. Including the cyst in the right ovary is enlarged measuring 8.3 x 6.6 x 8.8 cm. There is vascular flow in the right ovary with the Doppler resistive index of the intraparenchymal arteries measuring 0.60. There are two left ovarian cysts, one measuring 4.3 x 3.8 x 3 point centimeters and the other measuring 4.9 x 3.9 x 3.2 cm. Including the cyst the left ovary is enlarged measuring 7.6 by 5.1 x 7.3 cm. There is vascular flow in the left ovary with the Doppler resistive index of intraparenchymal arteries measuring 0.40. Impression: Large greater than 5 cm ovarian cyst in the right ovary. 2. Large left ovarian cysts as described. With Doppler assessment there is vascular flow in both ovaries. Uterus and endometrium are unremarkable Signed by Juarez Franks MD 09/18/2017 03:12 P
[2017-09-18] MEDS ORDERED: BACT800T5 PO (15:33)
[2017-09-18] MEDS ORDERED: OXYC1TAB23 PO (15:35)
[2017-09-18] MEDS ORDERED: BACTRIM 160MG/800MG DS TAB PO ONE (15:45)
[2017-09-18] MEDS ORDERED: PERCOCET 5MG/325MG TAB PO ONE (15:45)
[2017-09-18 15:50] VITALS: BP 132/91
== END 2017-09-18 15:51 | disposition home or self-care (01) ==
LOC: M ED 11:50
DX: N39.0 Urinary tract infection, site not specified (principal); E28.2 Polycystic ovarian syndrome; J45.909 Unspecified asthma, uncomplicated; G93.2 Benign intracranial hypertension; K21.9 Gastro-esophageal reflux disease without esophagitis; Z79.51 Long term (current) use of inhaled steroids; Z79.899 Other long term (current) drug therapy; Z91.040 Latex allergy status; Z87.891 Personal history of nicotine dependence

== ENCOUNTER 2017-12-15 10:51 | Emergency (ER) | payer OTHER ==
[2017-12-15 12:35] LABS: BASO % 0.5 % (0.0-1.0); EOS # 0.1 10^3/uL (0.0-0.50); EOS % 1.1 % (0.0-3.0); HEMATOCRIT 39.9 % (36.0-47.0); HEMOGLOBIN 12.4 g/dl (12.0-16.0); IMMATURE GRANULOCYTE % 0.4 % (0-3.0); LYMPH % 23.5 % (24.0-44.0); MEAN CORPUSCULAR HEMOGLOBIN 24.6 pg (27.0-33.0); MEAN CORPUSCULAR HGB CONC 31.1 g/dl (32.0-36.5); MONO # 0.4 10^3/uL (0.0-0.8); MONO % 4.6 % (0.0-5.0); NEUTROPHILS # 5.8 10^3/uL (1.8-7.7); NEUTROPHILS % 69.9 % (36.0-66.0); PLATELET COUNT, AUTOMATED 282 10^3/uL (150-450); RED BLOOD COUNT 5.05 10^6/uL (4.00-5.40); RED CELL DISTRIBUTION WIDTH 17.5 % (11.5-14.5); WHITE BLOOD COUNT 8.3 10^3/uL (4.0-10.0)
[2017-12-15 12:51] LABS: ANION GAP 5 MEQ/L (8-16); BLOOD UREA NITROGEN 11 MG/DL (7-18); CALCIUM LEVEL 9.1 MG/DL (8.5-10.1); CARBON DIOXIDE LEVEL 30 MEQ/L (21-32); CHLORIDE LEVEL 105 MEQ/L (98-107); CREATININE FOR GFR 0.89 MG/DL (0.55-1.30); GLOMERULAR FILTRATION RATE > 60.0 (>60); GLUCOSE, FASTING 99 MG/DL (70-100); POTASSIUM SERUM 4.5 MEQ/L (3.5-5.1); SODIUM LEVEL 140 MEQ/L (136-145)
[2017-12-15 13:07] LABS: ERYTHROCYTE SEDIMENTATION RATE 4 mm/hr (0-20)
[2017-12-15] MEDS: METOCLOPRAMIDE 10 MG TAB PO (16:24)
== END 2017-12-15 16:26 | disposition home or self-care (01) ==
LOC: M ED 10:51
DX: R51 Headache (principal); Z87.891 Personal history of nicotine dependence; N83.291 Other ovarian cyst, right side; Z98.2 Presence of cerebrospinal fluid drainage device; Z79.899 Other long term (current) drug therapy; Z91.040 Latex allergy status
CPT/HCPCS: 75809

== ENCOUNTER 2017-12-20 15:13 | Observation (INO) | payer OTHER ==
[2017-12-20] MEDS: ONDANSETRON 4MG/2ML VIAL (J2405) IV ×2 (16:31→21:50)
[2017-12-20] MEDS: MORPHINE 4 MG/ML 1ML VIAL (J2270) IV ×3 (16:32→23:55)
[2017-12-20] MEDS ORDERED: LIDOCAINE 1% MDV 20ML VIAL As Ordered (19:31)
[2017-12-20 19:58] LABS: ANION GAP 5 MEQ/L (8-16); BLOOD UREA NITROGEN 9 MG/DL (7-18); CALCIUM LEVEL 8.9 MG/DL (8.5-10.1); CARBON DIOXIDE LEVEL 30 MEQ/L (21-32); CHLORIDE LEVEL 107 MEQ/L (98-107); CREATININE FOR GFR 0.92 MG/DL (0.55-1.30); GLOMERULAR FILTRATION RATE > 60.0 (>60); GLUCOSE, FASTING 84 MG/DL (70-100); POTASSIUM SERUM 4.7 MEQ/L (3.5-5.1); SODIUM LEVEL 142 MEQ/L (136-145)
[2017-12-20] MEDS: HYDROmorphone HCL 1 MG/ML SYRINGE (J1170) IV (21:49)
[2017-12-20 22:03] LABS: BASO # 0.1 10^3/uL (0.0-0.2); BASO % 0.4 % (0.0-1.0); EOS # 0.1 10^3/uL (0.0-0.50); EOS % 0.4 % (0.0-3.0); HEMATOCRIT 40.3 % (36.0-47.0); HEMOGLOBIN 12.5 g/dl (12.0-16.0); IMMATURE GRANULOCYTE % 0.4 % (0-3.0); LYMPH # 2.7 10^3/uL (1.5-4.5); LYMPH % 19.3 % (24.0-44.0); MEAN CORPUSCULAR HEMOGLOBIN 24.9 pg (27.0-33.0); MEAN CORPUSCULAR VOLUME 80.1 fl (80.0-96.0); MONO # 0.7 10^3/uL (0.0-0.8); MONO % 4.9 % (0.0-5.0); NEUTROPHILS # 10.3 10^3/uL (1.8-7.7); NEUTROPHILS % 74.6 % (36.0-66.0); PLATELET COUNT, AUTOMATED 293 10^3/uL (150-450); RED BLOOD COUNT 5.03 10^6/uL (4.00-5.40); RED CELL DISTRIBUTION WIDTH 17.3 % (11.5-14.5); WHITE BLOOD COUNT 13.8 10^3/uL (4.0-10.0)
[2017-12-20 22:12] LABS: INR 0.99; PROTHROMBIN TIME 13.2 SECONDS (12.4-14.5)
[2017-12-20 22:13] LABS: PARTIAL THROMBOPLASTIN TIME 27.3 SECONDS (26.8-37.9)
[2017-12-21] MEDS: KCL 20MEQ IN D5/NS 1000ML 1,000 ML IV ×3 (00:15→18:21)
[2017-12-21] MEDS: NORCO, ANEXSIA 5/325MG TABLET (HYDROcodone/ACETAMINOPHEN) PO ×2 (02:19→08:41)
[2017-12-21] MEDS: MORPHINE 4 MG/ML 1ML VIAL (J2270) IV ×3 (06:01→19:52)
[2017-12-21 06:29] LABS: APPEARANCE, URINE HAZY (CLEAR); BACTERIA, URINE AUTO NEGATIVE (NEGATIVE); BILIRUBIN, URINE AUTO NEGATIVE (NEGATIVE); BLOOD, URINE BLOOD NEGATIVE (NEGATIVE); COLOR, URINE YELLOW (YELLOW); GLUCOSE, URINE (UA) AUTO NEGATIVE (NEGATIVE); KETONE, URINE AUTO NEGATIVE (NEGATIVE); LEUKOCYTE ESTERASE, URINE AUTO NEGATIVE (NEGATIVE); MUCUS, URINE SMALL (NEGATIVE); NITRITE, URINE AUTO NEGATIVE (NEGATIVE); PROTEIN, URINE AUTO NEGATIVE (NEGATIVE); RBC, URINE AUTO 3 /HPF (0-3); SPECIFIC GRAVITY URINE AUTO 1.027 (1.002-1.035); SQUAMOUS EPITHELIAL CELL UR AU 4 /HPF (0-6); UROBILINOGEN, URINE AUTO 0.2 mg/dL (0.0-2.0); WBC, URINE AUTO 3 /HPF (0-3)
[2017-12-21 06:57] LABS: BASO % 0.3 % (0.0-1.0); EOS % 0.3 % (0.0-3.0); HEMATOCRIT 37.3 % (36.0-47.0); HEMOGLOBIN 11.5 g/dl (12.0-16.0); IMMATURE GRANULOCYTE % 0.3 % (0-3.0); LYMPH # 3.1 10^3/uL (1.5-4.5); LYMPH % 24.8 % (24.0-44.0); MEAN CORPUSCULAR HGB CONC 30.8 g/dl (32.0-36.5); MEAN CORPUSCULAR VOLUME 81.1 fl (80.0-96.0); MONO # 0.7 10^3/uL (0.0-0.8); MONO % 5.5 % (0.0-5.0); NEUTROPHILS # 8.6 10^3/uL (1.8-7.7); NEUTROPHILS % 68.8 % (36.0-66.0); PLATELET COUNT, AUTOMATED 265 10^3/uL (150-450); RED CELL DISTRIBUTION WIDTH 17.6 % (11.5-14.5); WHITE BLOOD COUNT 12.5 10^3/uL (4.0-10.0)
[2017-12-21 07:15] LABS: ALBUMIN 3.2 GM/DL (3.2-5.2); ALBUMIN/GLOBULIN RATIO 0.89 (1.00-1.93); ALKALINE PHOSPHATASE 65 U/L (45-117); ALT/SGPT 23 U/L (12-78); ANION GAP 3 MEQ/L (8-16); AST/SGOT 23 U/L (7-37); BILIRUBIN,TOTAL 0.4 MG/DL (0.2-1.0); BLOOD UREA NITROGEN 9 MG/DL (7-18); CALCIUM LEVEL 8.2 MG/DL (8.5-10.1); CARBON DIOXIDE LEVEL 30 MEQ/L (21-32); CHLORIDE LEVEL 108 MEQ/L (98-107); CREATININE FOR GFR 0.91 MG/DL (0.55-1.30); GLOMERULAR FILTRATION RATE > 60.0 (>60); GLUCOSE, FASTING 106 MG/DL (70-100); POTASSIUM SERUM 4.1 MEQ/L (3.5-5.1); SODIUM LEVEL 141 MEQ/L (136-145); TOTAL PROTEIN 6.8 GM/DL (6.4-8.2)
[2017-12-22] MEDS: KCL 20MEQ IN D5/NS 1000ML 1,000 ML IV (02:13)
[2017-12-22] MEDS: MORPHINE 4 MG/ML 1ML VIAL (J2270) IV (04:47)
[2017-12-22] MEDS: NORCO, ANEXSIA 5/325MG TABLET (HYDROcodone/ACETAMINOPHEN) PO ×2 (06:42→13:08)
[2017-12-23 00:06] LABS: CYCLIC CITRULLINATED PEPTIDE 6 units (0-19)
[2017-12-24 14:15] LABS: INSULIN LEVEL 28.3 uIU/mL (2.6-24.9)
== END 2017-12-22 18:38 | disposition home or self-care (01) ==
LOC: M ED 15:13 → M ED INP 15:14 → M MS4PR 23:41
DX: M47.26 Other spondylosis with radiculopathy, lumbar region (principal); M53.3 Sacrococcygeal disorders, not elsewhere classified; M51.26 Other intervertebral disc displacement, lumbar region; E66.01 Morbid (severe) obesity due to excess calories; G89.29 Other chronic pain; M47.812 Spondylosis without myelopathy or radiculopathy, cervical region; G62.9 Polyneuropathy, unspecified; F17.200 Nicotine dependence, unspecified, uncomplicated; Z91.040 Latex allergy status; Z79.899 Other long term (current) drug therapy
CPT/HCPCS: 27096

== ENCOUNTER 2017-12-29 10:12 | Emergency (ER) | payer OTHER ==
[2017-12-29] MEDS: LORazepam 2 MG/ML VIAL (J2060) IV (10:58)
[2017-12-29] MEDS: KETOROLAC 30 MG/ML VIAL (J1885) IV (10:59)
[2017-12-29] MEDS: PERCOCET 5MG/325MG TAB PO (12:15)
[2017-12-29] MEDS: HYDROmorphone HCL 1 MG/ML SYRINGE (J1170) IV ×2 (15:00→16:58)
== END 2017-12-29 17:34 | disposition home or self-care (01) ==
LOC: M ED 10:12
DX: M51.9 Unspecified thoracic, thoracolumbar and lumbosacral intervertebral disc disorder (principal); Z91.040 Latex allergy status; Z79.51 Long term (current) use of inhaled steroids; Z79.899 Other long term (current) drug therapy
CPT/HCPCS: J1170

== ENCOUNTER → 2018-01-28 | Outpatient (CLI) | payer OTHER ==
[2018-01-28 12:00] LABS: BASO # 0.1 10^3/uL (0.0-0.2); BASO % 0.8 % (0.0-1.0); EOS # 0.1 10^3/uL (0.0-0.50); EOS % 1.6 % (0.0-3.0); HEMATOCRIT 42.5 % (36.0-47.0); HEMOGLOBIN 13.3 g/dl (12.0-15.5); IMMATURE GRANULOCYTE % 0.5 % (0-3.0); LYMPH # 2.2 10^3/uL (1.5-4.5); LYMPH % 27.3 % (24.0-44.0); MEAN CORPUSCULAR HEMOGLOBIN 26.1 pg (27.0-33.0); MEAN CORPUSCULAR HGB CONC 31.3 g/dl (32.0-36.5); MEAN CORPUSCULAR VOLUME 83.5 fl (80.0-96.0); MONO # 0.3 10^3/uL (0.0-0.8); MONO % 4.3 % (0.0-5.0); NEUTROPHILS # 5.3 10^3/uL (1.8-7.7); NEUTROPHILS % 65.5 % (36.0-66.0); PLATELET COUNT, AUTOMATED 317 10^3/uL (150-450); RED BLOOD COUNT 5.09 10^6/uL (4.00-5.40); RED CELL DISTRIBUTION WIDTH 16.6 % (11.5-14.5)
[2018-01-28 12:14] LABS: INR 0.94; PROTHROMBIN TIME 12.7 SECONDS (12.4-14.5)
[2018-01-28 12:15] LABS: PARTIAL THROMBOPLASTIN TIME 29.8 SECONDS (26.8-37.9)
[2018-01-28 12:28] LABS: ALBUMIN 3.8 GM/DL (3.2-5.2); ALBUMIN/GLOBULIN RATIO 0.93 (1.00-1.93); ALKALINE PHOSPHATASE 88 U/L (45-117); ALT/SGPT 35 U/L (12-78); ANION GAP 4 MEQ/L (8-16); AST/SGOT 30 U/L (7-37); BILIRUBIN,TOTAL 0.3 MG/DL (0.2-1.0); BLOOD UREA NITROGEN 13 MG/DL (7-18); CARBON DIOXIDE LEVEL 29 MEQ/L (21-32); CHLORIDE LEVEL 107 MEQ/L (98-107); CREATININE FOR GFR 0.93 MG/DL (0.55-1.30); GLOMERULAR FILTRATION RATE > 60.0 (>60); GLUCOSE, FASTING 97 MG/DL (70-100); POTASSIUM SERUM 4.6 MEQ/L (3.5-5.1); SODIUM LEVEL 140 MEQ/L (136-145); TOTAL PROTEIN 7.9 GM/DL (6.4-8.2)
[2018-01-28 12:34] LABS: COLLAGEN EPINEPHRINE 115 SECONDS (74-162)
== END ==
LOC: M LAB 10:42
DX: Z01.818 Encounter for other preprocedural examination (principal)
CPT/HCPCS: 71046

== ENCOUNTER → 2018-02-02 | Outpatient (REF) | payer OTHER ==
[2018-02-02 13:40] LABS: TOTAL 25(OH) VITAMIN D 12.6 NG/ML (30.0-100.0)
[2018-02-02 14:03] LABS: CHOLESTEROL LEVEL 181 MG/DL (<200); CHOLESTEROL RISK RATIO 4.891 (<5); FREE T4 1.26 NG/DL (0.76-1.46); HDL CHOLESTEROL 37 MG/DL (>40); LDL CHOLESTEROL 116.4 MG/DL (<100); NON-HDL-C 144 MG/DL; TRIGLYCERIDES LEVEL 138 MG/DL (<150)
== END ==
LOC: M LAB REF 13:00
DX: Z13.220 Encounter for screening for lipoid disorders (principal)

== ENCOUNTER 2018-02-17 08:36 | Inpatient (IN) | payer OTHER ==
[2018-02-17] MEDS ORDERED: LIDOCAINE 1% MDV 20ML VIAL SQ (09:00)
[2018-02-17] MEDS ORDERED: LR 1,000 ML IV ×2 (09:00→12:15)
[2018-02-17 09:21] LABS: CONTROL LINE UCG INT CTR LINE PRESENT; URINE PREG TEST NEGATIVE (NEGATIVE)
[2018-02-17] MEDS ORDERED: PROPOFOL 200 MG/20 ML VIAL As Ordered (09:45)
[2018-02-17] MEDS ORDERED: ROCURONIUM BROMIDE 50 MG/5 ML VIAL As Ordered (09:45)
[2018-02-17] MEDS ORDERED: fentaNYL 250 MCG/5 ML INJECTION (J3010) As Ordered (09:45)
[2018-02-17] MEDS ORDERED: LIDOCAINE 2% INJ 100 MG/5 ML SDV (FOR ANES.) As Ordered (09:45)
[2018-02-17] MEDS ORDERED: MIDAZOLAM INJ 2 MG/2 ML VIAL (J2250) As Ordered (09:46)
[2018-02-17] MEDS ORDERED: ceFAZolin 2 GM/D5W 50 ML IV BAG (J0690 PER 500MG) As Ordered (10:19)
[2018-02-17] MEDS: methylPREDNISolone SUSP 40 MG/ML (DEPO-medrol) VIAL (J1030) As Ordered (10:22)
[2018-02-17] MEDS: BACITRACIN PWD 50,000 UNITS VIAL As Ordered (10:22)
[2018-02-17] MEDS: THROMBIN SOLN 20,000 UNITS KIT As Ordered (10:22)
[2018-02-17] MEDS ORDERED: SUGAMMADEX SODIUM 500 MG/5 ML VIAL (BRIDION) As Ordered (12:11)
[2018-02-17] MEDS ORDERED: ONDANSETRON 4MG/2ML VIAL (J2405) IV (12:15)
[2018-02-17] MEDS ORDERED: fentaNYL 100 MCG/2 ML INJECTION (J3010) IV (12:15)
[2018-02-17] MEDS: PERCOCET 5MG/325MG TAB PO (12:25)
== END 2018-02-17 12:50 | disposition home or self-care (01) | DRG 347 ==
LOC: M OR 08:36 → M RR INP 12:12
DX: M51.26 Other intervertebral disc displacement, lumbar region (principal); E88.2 Lipomatosis, not elsewhere classified; Z53.09 Procedure and treatment not carried out because of other contraindication; L08.9 Local infection of the skin and subcutaneous tissue, unspecified; M47.812 Spondylosis without myelopathy or radiculopathy, cervical region; J45.909 Unspecified asthma, uncomplicated; G89.29 Other chronic pain

== ENCOUNTER → 2018-10-14 | Outpatient (CLI) | payer OTHER ==
[~2018-10-14] MED LIST changes: +ADVA115A INH; +ALLE180T33 PO; +BACT800T5 PO; -IBUP200C10 PO; +IBUP200C25 PO; +IBUPOTC PO; +NAPR-50 PO; +NAPR-885 PO; -NAPR500T PO; -NAPR500T3 PO; +NORC1TAB4 PO; +OXYC1TAB23 PO; +PERC5TAB12 PO; +PROAAER10 INH; +TRAZ-160 PO; -TRAZ50TA11 PO; +ZOFR4TAB14 PO; -ZOFR4TAB3 PO
[2018-10-14 11:27] LABS: URINE PREG TEST NEGATIVE (NEGATIVE)
[2018-10-14 11:30] LABS: HEMATOCRIT 36.3 % (36.0-47.0); HEMOGLOBIN 10.5 g/dl (12.0-15.5); MEAN CORPUSCULAR HEMOGLOBIN 20.2 pg (27.0-33.0); MEAN CORPUSCULAR HGB CONC 28.9 g/dl (32.0-36.5); MEAN CORPUSCULAR VOLUME 69.8 fl (80.0-96.0); PLATELET COUNT, AUTOMATED 353 10^3/uL (150-450); WHITE BLOOD COUNT 6.6 10^3/uL (4.0-10.0)
[2018-10-14 11:39] LABS: INR 0.98; PROTHROMBIN TIME 13.1 SECONDS (12.1-14.4)
[2018-10-14 11:57] LABS: ALBUMIN 3.6 GM/DL (3.2-5.2); ALT/SGPT 27 U/L (12-78); BILIRUBIN,TOTAL 0.3 MG/DL (0.2-1.0); BLOOD UREA NITROGEN 12 MG/DL (7-18); CALCIUM LEVEL 8.9 MG/DL (8.5-10.1); CARBON DIOXIDE LEVEL 27 MEQ/L (21-32); CHLORIDE LEVEL 106 MEQ/L (98-107); CREATININE FOR GFR 0.82 MG/DL (0.55-1.30); GLOMERULAR FILTRATION RATE > 60.0 (>60); GLUCOSE, FASTING 101 MG/DL (70-100); POTASSIUM SERUM 4.4 MEQ/L (3.5-5.1); SODIUM LEVEL 138 MEQ/L (136-145); TOTAL PROTEIN 7.1 GM/DL (6.4-8.2)
== END ==
LOC: M LAB 10:57
PROVIDERS: ATTEND Dentist Oral and Maxillofacial Surgery
DX: Z01.818 Encounter for other preprocedural examination (principal); K02.9 Dental caries, unspecified

== ENCOUNTER 2018-10-28 07:53 | Day surgery (SDC) | payer OTHER ==
[~2018-10-28] VITALS: Ht 160 cm; Wt 130.6 kg
[2018-10-28 08:33] LABS: URINE PREG TEST NEGATIVE (NEGATIVE)
[2018-10-28] MEDS ORDERED: LR 1,000 ML IV ONE (09:00)
[2018-10-28] MEDS ORDERED: ROCURONIUM BROMIDE 50 MG/5 ML VIAL As Ordered ONE (09:09)
[2018-10-28] MEDS ORDERED: PROPOFOL 200 MG/20 ML VIAL As Ordered ONE (09:09)
[2018-10-28] MEDS ORDERED: ONDANSETRON 4MG/2ML VIAL (J2405) As Ordered ONE (09:09)
[2018-10-28] MEDS ORDERED: SUCCINYLCHOLINE 100 MG/5 ML SYRINGE (J0330) As Ordered ONE (09:09)
[2018-10-28] MEDS ORDERED: fentaNYL 100 MCG/2 ML INJECTION (J3010) As Ordered ONE (09:09)
[2018-10-28] MEDS ORDERED: dexameTHASONE 4 MG/ML 1ML VIAL (J1100) As Ordered ONE (09:09)
[2018-10-28] MEDS ORDERED: MIDAZOLAM INJ 2 MG/2 ML VIAL (J2250) As Ordered ONE (09:09)
[2018-10-28] MEDS ORDERED: LIDOCAINE 2% INJ 100 MG/5 ML SDV (FOR ANES.) As Ordered ONE (09:09)
[2018-10-28] MEDS ORDERED: LIDOCAINE W/EPINEPHRINE 1% 20ML VIAL As Ordered ONE (09:32)
[2018-10-28] MEDS ORDERED: OXYMETAZOLINE NASAL SPRAY (AFRIN) As Ordered ONE (09:35)
[2018-10-28] MEDS ORDERED: fentaNYL 100 MCG/2 ML INJECTION (J3010) IV PRN (11:00)
[2018-10-28] MEDS ORDERED: HYDROMORPHONE HCL 0.5 MG/ 0.5 ML SYRINGE (J1170 PER 1) IV PRN (11:00)
[2018-10-28] MEDS ORDERED: ONDANSETRON 4MG/2ML VIAL (J2405) IV PRN (11:00)
[2018-10-28] MEDS ORDERED: LR 1,000 ML IV SCH ×2 (11:00)
[2018-10-28] MEDS: PERCOCET 5MG/325MG TAB PO PRN ×2 (11:32→12:05)
[2018-10-28] MEDS ORDERED: PERCOCET 5MG/325MG TAB As Ordered ONE (12:07)
[2018-10-28 13:59] VITALS: BP 136/65
--- NOTE | 2018-10-28 19:16 | RO ---
DATE OF PROCEDURE: 10/28/2018 PREPROCEDURE DIAGNOSIS: Nonrestorable teeth. POSTPROCEDURE DIAGNOSIS: Nonrestorable teeth. OPERATIVE PROCEDURE: Extraction of teeth #2, 4, 5, 6, 7, 8, 9, 11, 12, 14, 15. SURGEON: Masood Lind DMD BAGGAGE HANDLER: None ANESTHESIA: General. COMPLICATIONS: None. ESTIMATED BLOOD LOSS: 10 mL SPECIMENS: Teeth. DESCRIPTION OF PROCEDURE: #2,4,5,6,7,8,9,11,12,14,15 A 15 scapel blade was used to make a full-thickness buccal sulcular muco-periosteal mucoperiosteal incision carried from the tuberosity forward along the sulcular buccal sulcular gingiva to the midline. A full thickness muco-periosteal flap was raised using a periosteal elevator exposing the buccal bone support. Buccal bone was judiciously removed over the teeth as necessary for access and to mobilize the teeth. The teeth was elevated and removed with forceps. The tissue was closed using 3-0 chromic gut. MARYLOU
== END 2018-10-28 14:16 | disposition home or self-care (01) ==
LOC: M SDC 07:53
PROVIDERS: ATTEND Dentist Oral and Maxillofacial Surgery
DX: K02.9 Dental caries, unspecified (principal); J45.30 Mild persistent asthma, uncomplicated; K76.0 Fatty (change of) liver, not elsewhere classified; K21.9 Gastro-esophageal reflux disease without esophagitis; M12.9 Arthropathy, unspecified; M51.9 Unspecified thoracic, thoracolumbar and lumbosacral intervertebral disc disorder; G43.909 Migraine, unspecified, not intractable, without status migrainosus; R53.82 Chronic fatigue, unspecified; E28.2 Polycystic ovarian syndrome; D50.9 Iron deficiency anemia, unspecified; G93.2 Benign intracranial hypertension; Z91.040 Latex allergy status; Z79.899 Other long term (current) drug therapy; Z98.890 Other specified postprocedural states; Z87.820 Personal history of traumatic brain injury
CPT/HCPCS: 84703; 88300; D7210; D9223; J0330; J1100; J2250; J2405; J3010

== ENCOUNTER 2019-06-07 14:29 | Emergency (ER) | payer OTHER ==
[~2019-06-07] VITALS: Ht 160 cm; Wt 122.3 kg
[~2019-06-07 14:29] MED LIST changes: -NAPR-50 PO; +NAPR-837 PO; -NORC1TAB4 PO; +NORC1TAB7 PO; -TRAZ-160 PO; +TRAZ-252 PO; -VICO5TAB16 PO; +VICO5TAB17 PO
[2019-06-07 17:14] LABS: HEMATOCRIT 41.2 % (36.0-47.0); HEMOGLOBIN 12.5 g/dl (12.0-15.5); MEAN CORPUSCULAR HEMOGLOBIN 22.1 pg (27.0-33.0); MEAN CORPUSCULAR HGB CONC 30.3 g/dl (32.0-36.5); MEAN CORPUSCULAR VOLUME 72.9 fl (80.0-96.0); PLATELET COUNT, AUTOMATED 374 10^3/uL (150-450); RED BLOOD COUNT 5.65 10^6/uL (4.00-5.40); WHITE BLOOD COUNT 10.2 10^3/uL (4.0-10.0)
--- NOTE | 2019-06-07 17:32 | REPVR ---
EXAM: CT Abdomen and Pelvis Without Contrast EXAM DATE/TIME: 06/07/2019 5:14 PM CLINICAL HISTORY: 34 years old, female; Abdominal pain; Additional info: L flank pain/hematuria TECHNIQUE: Imaging protocol: Computed tomography of the abdomen and pelvis without contrast. Radiation optimization: All CT scans at this facility use at least one of these dose optimization techniques: automated exposure control; mA and/or kV adjustment per patient size (includes targeted exams where dose is matched to clinical indication); or iterative reconstruction. COMPARISON: CT ABD PELVIS W/O CONTRAST 12/15/2017 3:03 PM FINDINGS: Tubes, catheters and devices: There is a shunt demonstrated images the spinal canal at the L2-3 and the right side of the abdomen as well. Liver: Normal. No mass. Gallbladder and bile ducts: Normal. No calcified stones. No ductal dilation. Pancreas: Normal. No ductal dilation. Spleen: Normal. No splenomegaly. Adrenals: Normal. No mass. Kidneys and ureters: There is a 4 mm. obstructive ureteral calculus located at the left UVJ resulting in mild proximal hydroureteronephrosis. There is minimal periureteral and perinephric stranding. No urinoma demonstrated. Stomach and bowel: Unremarkable. No obstruction. No mucosal thickening. Appendix: No evidence of appendicitis. Intraperitoneal space: Unremarkable. No free air. No significant fluid collection. Vasculature: Unremarkable. No abdominal aortic aneurysm. Lymph nodes: Unremarkable. No enlarged lymph nodes. Bladder: Unremarkable as visualized. Reproductive: Unremarkable as visualized. Bones/joints: Disc osteophyte complex at L5-S1 results in a mild to moderate central spinal stenosis. Soft tissues: Unremarkable. IMPRESSION: There is a 4 mm. obstructive ureteral calculus located at the left UVJ resulting in mild proximal hydroureteronephrosis. There is minimal periureteral and perinephric stranding. No urinoma demonstrated. Electronically signed by: Koko Farris On 06/07/2019 17:32:11 PM
[2019-06-07] MEDS ORDERED: CIPR-249 PO (18:24)
[2019-06-07] MEDS ORDERED: FLOM0.4C39 PO (18:24)
[2019-06-07] MEDS ORDERED: KETO10TAB PO (18:24)
[2019-06-07 18:34] VITALS: BP 170/81
== END 2019-06-07 18:34 | disposition home or self-care (01) ==
LOC: M ED 14:29
DX: N13.1 Hydronephrosis with ureteral stricture, not elsewhere classified (principal); N39.0 Urinary tract infection, site not specified; Z79.899 Other long term (current) drug therapy; J45.909 Unspecified asthma, uncomplicated; K21.9 Gastro-esophageal reflux disease without esophagitis; Z98.2 Presence of cerebrospinal fluid drainage device

== ENCOUNTER 2019-06-20 12:53 | Emergency (ER) | payer OTHER ==
[~2019-06-20] VITALS: Ht 160 cm; Wt 122.7 kg
[~2019-06-20 12:53] MED LIST changes: +CIPR-249 PO; +FLOM0.4C39 PO; +KETO10TAB PO
[2019-06-20 14:20] LABS: HEMOGLOBIN 11.4 g/dl (12.0-15.5); MEAN CORPUSCULAR HEMOGLOBIN 22.2 pg (27.0-33.0); MEAN CORPUSCULAR VOLUME 74.1 fl (80.0-96.0); PLATELET COUNT, AUTOMATED 306 10^3/uL (150-450); RED BLOOD COUNT 5.13 10^6/uL (4.00-5.40); WHITE BLOOD COUNT 9.6 10^3/uL (4.0-10.0)
[2019-06-20 14:38] LABS: BLOOD UREA NITROGEN 12 MG/DL (7-18); CALCIUM LEVEL 8.7 MG/DL (8.5-10.1); CARBON DIOXIDE LEVEL 28 MEQ/L (21-32); CHLORIDE LEVEL 107 MEQ/L (98-107); CREATININE FOR GFR 0.89 MG/DL (0.55-1.30); GLOMERULAR FILTRATION RATE > 60.0 (>60); GLUCOSE, FASTING 83 MG/DL (70-100); POTASSIUM SERUM 4.1 MEQ/L (3.5-5.1); SODIUM LEVEL 141 MEQ/L (136-145)
[2019-06-20 14:40] LABS: ERYTHROCYTE SEDIMENTATION RATE 5 mm/hr (0-20)
[2019-06-20] MEDS ORDERED: KETOROLAC 30 MG/ML VIAL (J1885) IV ONE (15:00)
[2019-06-20] MEDS ORDERED: BACT800T5 PO (15:06)
[2019-06-20 15:26] VITALS: BP 140/89
[2019-06-20] MEDS ORDERED: BACTRIM 160MG/800MG DS TAB PO ONE (16:00)
== END 2019-06-20 15:48 | disposition home or self-care (01) ==
LOC: M ED 12:53
DX: D64.9 Anemia, unspecified (principal); M54.32 Sciatica, left side; G89.29 Other chronic pain; S31.000A Unspecified open wound of lower back and pelvis without penetration into retroperitoneum, initial encounter; X58.XXXA Exposure to other specified factors, initial encounter; Y92.89 Other specified places as the place of occurrence of the external cause; Y93.89 Activity, other specified; R21 Rash and other nonspecific skin eruption; F17.210 Nicotine dependence, cigarettes, uncomplicated; Z22.322 Carrier or suspected carrier of Methicillin resistant Staphylococcus aureus; Z98.2 Presence of cerebrospinal fluid drainage device; Z86.69 Personal history of other diseases of the nervous system and sense organs; Z87.820 Personal history of traumatic brain injury; Z98.890 Other specified postprocedural states; Z91.040 Latex allergy status
CPT/HCPCS: 80048; 85027; 85652; 86140; 87040; 87070; 87077; 87186; 87205; 96374; 99284; J1885

== ENCOUNTER → 2019-07-18 | Outpatient (REF) | payer OTHER ==
[2019-07-18 14:11] LABS: APPEARANCE, URINE CLOUDY (CLEAR); BACTERIA, URINE AUTO NEGATIVE (NEGATIVE); BILIRUBIN, URINE AUTO NEGATIVE (NEGATIVE); BLOOD, URINE BLOOD 3+ (NEGATIVE); CALCIUM OXALATE CRYSTALS SMALL; COLOR, URINE YELLOW (YELLOW); GLUCOSE, URINE (UA) AUTO NEGATIVE (NEGATIVE); KETONE, URINE AUTO NEGATIVE (NEGATIVE); LEUKOCYTE ESTERASE, URINE AUTO 1+ (NEGATIVE); MUCUS, URINE SMALL (NEGATIVE); NITRITE, URINE AUTO NEGATIVE (NEGATIVE); PROTEIN, URINE AUTO NEGATIVE (NEGATIVE); RBC, URINE AUTO 68 /HPF (0-3); SQUAMOUS EPITHELIAL CELL UR AU 9 /HPF (0-6); UROBILINOGEN, URINE AUTO 0.2 mg/dL (0.0-2.0); WBC, URINE AUTO 22 /HPF (0-3)
== END ==
LOC: M SMT 13:16
PROVIDERS: ATTEND Nurse Practitioner Family
DX: N20.0 Calculus of kidney (principal)

== ENCOUNTER → 2019-07-18 | Outpatient (CLI) | payer OTHER ==
--- NOTE | 2019-07-18 18:06 | REP ---
Clinical: Kidney stone. Technique: Two views of the abdomen and pelvis. Findings: Small 2-3 mm calculus in the left jamie pelvis is nonspecific. No obvious renal calculi identified. Bowel gas pattern is within normal limits. Navel piercing noted. Skeletal structures are intact. Impression: Small to a 3 mm calculus in the left jamie pelvis is nonspecific. Electronically Signed by Steve Fischer MD 07/18/2019 05:58 P
== END ==
LOC: M SMT 11:30
PROVIDERS: ATTEND Nurse Practitioner Family
DX: N20.0 Calculus of kidney (principal)

== ENCOUNTER → 2019-07-24 | Outpatient (CLI) | payer OTHER ==
[~2019-07-24] MED LIST changes: +ISOVUE-370 76% 100ML VIAL (Q9967) As Ordered ONE
--- NOTE | 2019-07-24 19:31 | REP ---
Clinical: Microscopic hematuria. Comparison: 06/07/2019. Technique: Axial precontrast, contrast enhanced, and delayed images of the abdomen and pelvis using 100 ml Isovue 370 intravenous contrast material with coronal and sagittal re-formations as well as 3-D volume rendered urogram. Findings: Bilateral kidneys/ureters and bladder are normal in all phases of the examination. Liver, spleen, pancreas, gallbladder, and bilateral adrenal glands are normal. The enteric system is without obstruction or acute inflammatory process. Scattered diverticula noted without acute diverticulitis. Pelvis demonstrates normal bladder and age-appropriate uterus/adnexa. No ascites. No free air. No adenopathy. Abdominal aorta without aneurysm or dissection. Surrounding musculoskeletal structures are intact. Incidental epidural shunt catheter extends into the abdomen. Impression: 1. Normal urinary tract system. 2. No acute abdominopelvic pathology appreciated. Electronically Signed by Steve Fischer MD 07/24/2019 07:24 P
== END ==
LOC: M RAD 07:20
PROVIDERS: ATTEND Nurse Practitioner Family
DX: R31.29 Other microscopic hematuria (principal); K57.90 Diverticulosis of intestine, part unspecified, without perforation or abscess without bleeding; Z98.2 Presence of cerebrospinal fluid drainage device
CPT/HCPCS: 74178; Q9967

== ENCOUNTER → 2019-08-15 | Outpatient (REF) | payer OTHER ==
[~2019-08-15] MED LIST changes: -ISOVUE-370 76% 100ML VIAL (Q9967) As Ordered ONE
[2019-08-15 18:03] LABS: AMORPHOUS SEDIMENT LARGE (NEGATIVE); APPEARANCE, URINE TURBID (CLEAR); BACTERIA, URINE AUTO NEGATIVE (NEGATIVE); BILIRUBIN, URINE AUTO NEGATIVE (NEGATIVE); BLOOD, URINE BLOOD 3+ (NEGATIVE); COLOR, URINE YELLOW (YELLOW); GLUCOSE, URINE (UA) AUTO NEGATIVE (NEGATIVE); KETONE, URINE AUTO NEGATIVE (NEGATIVE); LEUKOCYTE ESTERASE, URINE AUTO TRACE (NEGATIVE); MUCUS, URINE SMALL (NEGATIVE); NITRITE, URINE AUTO NEGATIVE (NEGATIVE); PROTEIN, URINE AUTO 1+ mg/dL (NEGATIVE); RBC, URINE AUTO 61 /HPF (0-3); SPECIFIC GRAVITY URINE AUTO 1.027 (1.002-1.035); SQUAMOUS EPITHELIAL CELL UR AU 0 /HPF (0-6); UROBILINOGEN, URINE AUTO 0.2 mg/dL (0.0-2.0); WBC, URINE AUTO 0 /HPF (0-3)
== END ==
LOC: M SFHCPLAZ 17:10
PROVIDERS: ATTEND Family Medicine
DX: R31.9 Hematuria, unspecified (principal)

== ENCOUNTER → 2019-08-22 | Outpatient (CLI) | payer OTHER ==
--- NOTE | 2019-08-22 09:31 | REP ---
RIGHT UPPER QUADRANT ULTRASOUND: Real-time sonographic evaluation of the right upper quadrant performed. Gallbladder demonstrates no evidence of intraluminal sludge or calculi, wall thickening or pericholecystic fluid. There is no intrahepatic or extrahepatic biliary dilatation, common bile duct measuring 3 mm. Liver demonstrates diffuse heterogeneous increased echotexture compatible with diffuse fibrofatty infiltration. Pancreas is not well seen due to overlying bowel gas. Right kidney demonstrates no hydronephrosis with normal size 11.1 cm in length. There is no ascites identified. IMPRESSION: Diffuse fibrofatty infiltration of the liver. Electronically Signed by Juarez Hay MD 08/23/2019 10:26 A
== END ==
LOC: M RAD 07:48
PROVIDERS: ATTEND Family Medicine
DX: R10.11 Right upper quadrant pain (principal); K76.0 Fatty (change of) liver, not elsewhere classified

== ENCOUNTER → 2019-10-10 | Outpatient (CLI) | payer OTHER ==
[2019-10-10 14:31] LABS: FREE T4 1.14 NG/DL (0.76-1.46); LUTEINIZING HORMONE 4.6 mIU/mL; PROGESTERONE 0.45 NG/ML; PROLACTIN 9.1 NG/ML; THYROID STIMULATING HORMONE 1.93 uIU/ML (0.358-3.740)
[2019-10-10 16:59] LABS: HEMOGLOBIN A1c 6.2 %
[2019-10-12 00:06] LABS: INSULIN LEVEL 56.8 uIU/mL (2.6-24.9); TESTOSTERONE FREE (DIRECT) 2.7 pg/mL (0.0-4.2)
== END ==
LOC: M PLALAB 11:34
PROVIDERS: ATTEND Specialist
DX: E28.2 Polycystic ovarian syndrome (principal)

== ENCOUNTER → 2019-11-01 | Outpatient (CLI) | payer OTHER ==
[2019-11-04 00:07] LABS: ANTINUCLEAR ANTIBODIES DIRECT Negative (Negative); IgA ULTRASENSITIVE 151.6 mg/dL (72-321)
== END ==
LOC: M LAB 07:54
PROVIDERS: ATTEND Family Medicine
DX: R19.7 Diarrhea, unspecified (principal)

== ENCOUNTER → 2019-11-01 | Outpatient (CLI) | payer OTHER ==
--- NOTE | 2019-11-01 10:01 | REP ---
Pelvic ultrasound including transabdominal, endovaginal and Doppler ultrasound assessment: Comparison is 09/18/2017. The uterus is anteverted and normal size measuring 8.4 3.9 x 4.3 cm. The endometrium is upper normal thickness for patient age measuring 14.7 mm. Right ovary: The right ovary measures 3.8 x 2.6 x 3 per 1 cm and is normal size. There are no dominant right ovarian masses or cysts. The large right ovarian cyst identified on the comparison study has resolved. There are small follicles. There is vascular flow with the Doppler resistive index in the parenchymal arteries measuring 0.61. Left ovary: The left ovary measures 3.2 x 2.5 x 3.4 cm and is normal size. There is no dominant mass or cyst. The multiple left ovarian cysts on the comparison study are no longer present. There are small follicles. There is vascular flow with the Doppler resistive index in the parenchymal arteries measuring 0.65. There is a trace amount of free fluid in the pelvis. Electronically Signed by Juarez Franks MD 11/01/2019 09:52 A
== END ==
LOC: M RAD 08:56
PROVIDERS: ATTEND Specialist
DX: E28.2 Polycystic ovarian syndrome (principal)

== ENCOUNTER 2020-06-03 09:17 | Emergency (ER) | payer OTHER ==
[~2020-06-03] VITALS: Ht 160 cm; Wt 116.3 kg
[~2020-06-03 09:17] MED LIST changes: +CYCL-707 PO; -CYCL10TA PO
[2020-06-03] MEDS ORDERED: ZYRTTAB8 PO (09:27)
[2020-06-03 11:15] VITALS: BP 119/77
== END 2020-06-03 11:15 | disposition home or self-care (01) ==
LOC: M ED 09:17
DX: Z32.02 Encounter for pregnancy test, result negative (principal); J45.909 Unspecified asthma, uncomplicated; Z79.51 Long term (current) use of inhaled steroids; Z79.899 Other long term (current) drug therapy; Z91.040 Latex allergy status

== ENCOUNTER → 2020-06-28 | Outpatient (CLI) | payer OTHER ==
[~2020-06-28] MED LIST changes: +ZYRTTAB8 PO
== END ==
LOC: M PLALAB 13:35
PROVIDERS: ATTEND Hospitalist
DX: Z32.00 Encounter for pregnancy test, result unknown (principal)

== ENCOUNTER 2020-07-02 17:32 | Emergency (ER) | payer OTHER ==
[~2020-07-02] VITALS: Ht 160 cm; Wt 121.1 kg
[2020-07-02 19:34] LABS: BASO # 0.1 10^3/uL (0.0-0.2); BASO % 0.7 % (0.0-1.0); EOS # 0.2 10^3/uL (0.0-0.5); EOS % 2.1 % (0.0-3.0); HEMATOCRIT 42.2 % (36.0-47.0); HEMOGLOBIN 12.9 g/dl (12.0-15.5); LYMPH # 2.7 10^3/uL (1.5-5.0); LYMPH % 30.1 % (24.0-44.0); MEAN CORPUSCULAR HEMOGLOBIN 25.9 pg (27.0-33.0); MEAN CORPUSCULAR HGB CONC 30.6 g/dl (32.0-36.5); MEAN CORPUSCULAR VOLUME 84.6 fl (80.0-96.0); MONO # 0.6 10^3/uL (0.0-0.8); MONO % 6.3 % (0.0-5.0); NEUTROPHILS # 5.5 10^3/uL (1.5-8.5); NEUTROPHILS % 60.2 % (36.0-66.0); PLATELET COUNT, AUTOMATED 312 10^3/uL (150-450); RED BLOOD COUNT 4.99 10^6/uL (4.00-5.40); WHITE BLOOD COUNT 9.1 10^3/uL (4.0-10.0)
--- NOTE | 2020-07-02 20:03 | REPVR ---
PROCEDURE INFORMATION: Exam: US Abdomen, Limited; Right Upper Quadrant Exam date and time: 07/02/2020 7:42 PM Age: 35 years old Clinical indication: Abdominal pain; Generalized; Additional info: Ruq pain TECHNIQUE: Imaging protocol: US abdomen. Real time ultrasound with image documentation. Limited exam focused on the right upper quadrant. COMPARISON: GALLBLADDER US 07/23/2016 8:04 AM FINDINGS: Liver: The liver is diffusely echogenic relative to the right kidney, findings consistent with steatosis. Gallbladder: Normal. No gallstones. There is no gallbladder wall thickening. Common bile duct: The common bile duct measures 5 mm. No mass or choledocholithiasis. Pancreas: Pancreas largely obscured by overlying bowel gas. Right kidney: Right kidney measures 10.3 x 4.7 x 4.1 cm. IMPRESSION: 1. Hepatic steatosis. 2. Gallbladder unremarkable. No dilatation of biliary tree. Electronically signed by: Koko Farris On 07/02/2020 20:03:02 PM
[2020-07-02 20:16] LABS: BLOOD UREA NITROGEN 6 MG/DL (7-18); CALCIUM LEVEL 8.8 MG/DL (8.5-10.1); CARBON DIOXIDE LEVEL 30 MEQ/L (21-32); CHLORIDE LEVEL 106 MEQ/L (98-107); CREATININE FOR GFR 0.87 MG/DL (0.55-1.30); GLOMERULAR FILTRATION RATE > 60.0 (>60); GLUCOSE, FASTING 83 MG/DL (70-100); POTASSIUM SERUM 4.2 MEQ/L (3.5-5.1); SODIUM LEVEL 139 MEQ/L (136-145)
[2020-07-02 20:27] LABS: HCG, SERUM QUALITATIVE NEGATIVE (NEGATIVE)
[2020-07-02 21:41] LABS: ALBUMIN 3.5 GM/DL (3.2-5.2); ALT/SGPT 52 U/L (12-78); BILIRUBIN,DIRECT < 0.1 MG/DL (0.0-0.2); BILIRUBIN,TOTAL 0.3 MG/DL (0.2-1.0); LIPASE 165 U/L (73-393); TOTAL PROTEIN 7.5 GM/DL (6.4-8.2)
--- NOTE | 2020-07-02 21:56 | REPVR ---
PROCEDURE INFORMATION: Exam: US Pelvis Complete, Transabdominal and US Pelvis, Transvaginal Exam date and time: 07/02/2020 9:29 PM Age: 35 years old Clinical indication: Pelvic pain; Additional info: Lower abd pain PT concerned for ovarian cyst TECHNIQUE: Imaging protocol: Real-time transabdominal and transvaginal pelvic ultrasound (complete) with image documentation. Transvaginal imaging was used for better evaluation of the endometrium and adnexa. COMPARISON: US PELVIC NON-OB COMPLETE 11/01/2019 9:15 AM FINDINGS: Uterus/cervix: The uterus measures 9.8 cm in its cephalocaudad dimension and 4.5 x 5.3 cm in its AP and lateral dimensions transabdominal. The endometrium measures 10 mm transabdominal and 18 mm transvaginal. The uterus measures 8.6 cm in its cephalocaudad dimension and 4.4 x 5.3 cm in its AP and lateral dimensions. Right adnexa: The right ovary measures 3.3 x 3.1 x 3.0 cm and demonstrates a few small follicles and normal arterial and venous blood flow. Left adnexa: The left ovary measures 3.8 x 2.8 x 3.4 cm and demonstrates arterial and venous blood flow. Intraperitoneal space: None. Urinary bladder: The urinary bladder is decompressed measuring 3.9 x 1.6 x 4.1 cm. IMPRESSION: 1. Top-normal endometrium measuring 18 mm. 2. Otherwise negative pelvic sonogram. Electronically signed by: Edwardo Osei On 07/02/2020 21:56:10 PM
[2020-07-02 22:24] VITALS: BP 120/77
--- NOTE | 2020-07-03 18:15 | ED PDOC ---
Post-Departure Follow-Up pelvic us faxed to dr galaviz for fu Efrain De La Fuente MD Jul 03, 2020 18:15
== END 2020-07-02 22:27 | disposition home or self-care (01) ==
LOC: M ED 17:32
DX: N94.6 Dysmenorrhea, unspecified (principal); R10.2 Pelvic and perineal pain; K76.0 Fatty (change of) liver, not elsewhere classified; K90.0 Celiac disease; E28.2 Polycystic ovarian syndrome; Z91.040 Latex allergy status

== ENCOUNTER → 2020-08-06 | Outpatient (REF) | payer OTHER | LOC: M PLALAB 10:05 | PROVIDERS: ATTEND Specialist | DX: N92.6 Irregular menstruation, unspecified (principal) ==

== ENCOUNTER 2020-12-12 12:28 | Emergency (ER) | payer OTHER ==
[~2020-12-12] VITALS: Ht 160 cm; Wt 121.2 kg
[2020-12-12] MEDS ORDERED: MULTTAB20 PO (12:49)
[2020-12-12 14:38] LABS: APPEARANCE, URINE CLOUDY (CLEAR); BACTERIA, URINE AUTO 1+ (NEGATIVE); BASO # 0.1 10^3/uL (0.0-0.2); BASO % 0.9 % (0.0-1.0); BILIRUBIN, URINE AUTO NEGATIVE (NEGATIVE); BLOOD, URINE BLOOD 3+ (NEGATIVE); COLOR, URINE YELLOW (YELLOW); EOS # 0.2 10^3/uL (0.0-0.5); EOS % 2.1 % (0.0-3.0); GLUCOSE, URINE (UA) AUTO NEGATIVE (NEGATIVE); HEMATOCRIT 38.2 % (36.0-47.0); HEMOGLOBIN 11.5 g/dl (12.0-15.5); KETONE, URINE AUTO NEGATIVE (NEGATIVE); LEUKOCYTE ESTERASE, URINE AUTO NEGATIVE (NEGATIVE); LYMPH # 2.2 10^3/uL (1.5-5.0); LYMPH % 25.8 % (24.0-44.0); MEAN CORPUSCULAR HEMOGLOBIN 21.7 pg (27.0-33.0); MEAN CORPUSCULAR HGB CONC 30.1 g/dl (32.0-36.5); MEAN CORPUSCULAR VOLUME 71.9 fl (80.0-96.0); MONO # 0.5 10^3/uL (0.0-0.8); MONO % 6.1 % (2.0-8.0); MUCUS, URINE SMALL (NEGATIVE); NEUTROPHILS # 5.5 10^3/uL (1.5-8.5); NEUTROPHILS % 64.6 % (36.0-66.0); NITRITE, URINE AUTO NEGATIVE (NEGATIVE); PLATELET COUNT, AUTOMATED 352 10^3/uL (150-450); PROTEIN, URINE AUTO 1+ mg/dL (NEGATIVE); RBC, URINE AUTO TNTC /HPF (0-3); RED BLOOD COUNT 5.31 10^6/uL (4.00-5.40); SPECIFIC GRAVITY URINE AUTO 1.018 (1.002-1.035); SQUAMOUS EPITHELIAL CELL UR AU 1 /HPF (0-6); UROBILINOGEN, URINE AUTO 0.2 mg/dL (0.0-2.0); WBC, URINE AUTO 11 /HPF (0-3); WHITE BLOOD COUNT 8.6 10^3/uL (4.0-10.0)
[2020-12-12 15:41] VITALS: BP 130/68
== END 2020-12-12 15:43 | disposition home or self-care (01) ==
LOC: M ED 12:28
DX: O02.81 Inappropriate change in quantitative human chorionic gonadotropin (hCG) in early pregnancy (principal); E28.2 Polycystic ovarian syndrome; K21.9 Gastro-esophageal reflux disease without esophagitis; K90.0 Celiac disease; Z79.899 Other long term (current) drug therapy; Z91.040 Latex allergy status

== ENCOUNTER → 2020-12-16 | Outpatient (REF) | payer OTHER ==
[~2020-12-16] MED LIST changes: +MULTTAB20 PO
[2020-12-16 17:46] LABS: APPEARANCE, URINE CLEAR (CLEAR); BACTERIA, URINE AUTO NEGATIVE (NEGATIVE); BILIRUBIN, URINE AUTO 1+ (NEGATIVE); BLOOD, URINE BLOOD 1+ (NEGATIVE); COLOR, URINE YELLOW (YELLOW); GLUCOSE, URINE (UA) AUTO NEGATIVE (NEGATIVE); KETONE, URINE AUTO NEGATIVE (NEGATIVE); LEUKOCYTE ESTERASE, URINE AUTO TRACE (NEGATIVE); MUCUS, URINE SMALL (NEGATIVE); NITRITE, URINE AUTO NEGATIVE (NEGATIVE); PROTEIN, URINE AUTO 1+ mg/dL (NEGATIVE); RBC, URINE AUTO 22 /HPF (0-3); SPECIFIC GRAVITY URINE AUTO 1.027 (1.002-1.035); SQUAMOUS EPITHELIAL CELL UR AU 9 /HPF (0-6); UROBILINOGEN, URINE AUTO 0.2 mg/dL (0.0-2.0); WBC, URINE AUTO 7 /HPF (0-3)
== END ==
LOC: M SFHCPLAZ 16:56
PROVIDERS: ATTEND Physician Assistant
DX: R35.0 Frequency of micturition (principal)

== ENCOUNTER 2021-02-18 17:15 | Emergency (ER) | payer OTHER ==
[~2021-02-18] VITALS: Ht 160 cm; Wt 123.4 kg
[2021-02-18] MEDS ORDERED: APPL300T4 PO (17:34)
[2021-02-18] MEDS ORDERED: AUGMENTIN 875 MG TAB PO ONE (19:40)
[2021-02-18] MEDS ORDERED: BOOSTRIX/ADACEL VACCINE (DIPHTH/PERTUSS/ACELL/TETANUS) 0.5ML SYR IM ONE (19:40)
[2021-02-18] MEDS ORDERED: AUGM875T28 PO (20:33)
[2021-02-18 20:38] VITALS: BP 131/81
--- NOTE | 2021-02-19 03:32 | REP ---
INDICATION: right 5th finger cat bite COMPARISON: None. TECHNIQUE: AP, lateral, bilateral oblique views right 5th digit. FINDINGS: No acute fracture or dislocation. Osseous structures and joint spaces are intact and normal. No subcutaneous emphysema or foreign body. IMPRESSION: No subcutaneous emphysema or foreign body. No acute fracture or dislocation. <Electronically signed by Steve Fischer > 02/19/21 [id number]
== END 2021-02-18 20:41 | disposition home or self-care (01) ==
LOC: M ED 17:15
DX: S61.256A Open bite of right little finger without damage to nail, initial encounter (principal); W55.01XA Bitten by cat, initial encounter; Y92.009 Unspecified place in unspecified non-institutional (private) residence as the place of occurrence of the external cause; Y93.K9 Activity, other involving animal care; Y99.9 Unspecified external cause status; J45.909 Unspecified asthma, uncomplicated; K90.0 Celiac disease; Z87.820 Personal history of traumatic brain injury; Z79.899 Other long term (current) drug therapy; Z91.040 Latex allergy status

== ENCOUNTER → 2021-05-20 | Outpatient (REF) | payer OTHER ==
[~2021-05-20] MED LIST changes: +APPL300T4 PO
== END ==
LOC: M SFHCPLAZ 14:04
PROVIDERS: ATTEND Family Medicine
DX: R73.01 Impaired fasting glucose (principal); E66.01 Morbid (severe) obesity due to excess calories; L29.9 Pruritus, unspecified

== ENCOUNTER → 2021-05-26 | Outpatient (CLI) | payer OTHER ==
[2021-05-26 11:46] LABS: BASO % 0.6 % (0.0-1.0); EOS # 0.1 10^3/uL (0.0-0.5); EOS % 1.4 % (0.0-3.0); HEMATOCRIT 45.2 % (36.0-47.0); HEMOGLOBIN 14.5 g/dl (12.0-15.5); LYMPH # 2.1 10^3/uL (1.5-5.0); LYMPH % 29.8 % (24.0-44.0); MEAN CORPUSCULAR HEMOGLOBIN 27.3 pg (27.0-33.0); MEAN CORPUSCULAR HGB CONC 32.1 g/dl (32.0-36.5); MEAN CORPUSCULAR VOLUME 85.1 fl (80.0-96.0); MONO # 0.3 10^3/uL (0.0-0.8); MONO % 4.9 % (2.0-8.0); NEUTROPHILS # 4.4 10^3/uL (1.5-8.5); NEUTROPHILS % 62.9 % (36.0-66.0); PLATELET COUNT, AUTOMATED 277 10^3/uL (150-450); RED BLOOD COUNT 5.31 10^6/uL (4.00-5.40); WHITE BLOOD COUNT 6.9 10^3/uL (4.0-10.0)
[2021-05-26 12:25] LABS: FREE T4 1.01 NG/DL (0.76-1.46); THYROID STIMULATING HORMONE 1.52 uIU/ML (0.358-3.740)
== END ==
LOC: M LAB 11:11
PROVIDERS: ATTEND Family Medicine
DX: R73.01 Impaired fasting glucose (principal); E66.01 Morbid (severe) obesity due to excess calories; L29.9 Pruritus, unspecified

== ENCOUNTER → 2021-07-17 | Outpatient (REF) | payer OTHER | LOC: M SFHCPLAZ 12:01 | PROVIDERS: ATTEND Family Medicine | DX: E28.2 Polycystic ovarian syndrome (principal); Z53.9 Procedure and treatment not carried out, unspecified reason ==

== ENCOUNTER → 2021-07-17 | Outpatient (CLI) | payer OTHER | LOC: M PLALAB 12:08 | PROVIDERS: ATTEND Family Medicine | DX: E28.2 Polycystic ovarian syndrome (principal) ==

== ENCOUNTER → 2022-04-13 | Outpatient (REF) | payer OTHER ==
[~2022-04-13] MED LIST changes: +FEXO-117 PO; -FEXO180T58 PO
[2022-04-13 11:50] LABS: APPEARANCE, URINE HAZY (CLEAR); BACTERIA, URINE AUTO 1+ (NEGATIVE); BILIRUBIN, URINE AUTO NEGATIVE (NEGATIVE); BLOOD, URINE BLOOD NEGATIVE (NEGATIVE); COLOR, URINE YELLOW (YELLOW); GLUCOSE, URINE (UA) AUTO NEGATIVE (NEGATIVE); KETONE, URINE AUTO NEGATIVE (NEGATIVE); LEUKOCYTE ESTERASE, URINE AUTO 1+ (NEGATIVE); MUCUS, URINE SMALL (NEGATIVE); NITRITE, URINE AUTO NEGATIVE (NEGATIVE); PROTEIN, URINE AUTO NEGATIVE (NEGATIVE); RBC, URINE AUTO 5 /HPF (0-3); SPECIFIC GRAVITY URINE AUTO 1.021 (1.002-1.035); SQUAMOUS EPITHELIAL CELL UR AU 15 /HPF (0-6); UROBILINOGEN, URINE AUTO 0.2 mg/dL (0.0-2.0); WBC, URINE AUTO 12 /HPF (0-3)
== END ==
LOC: M LAB REF 11:31
PROVIDERS: ATTEND Physician Assistant Medical
DX: N39.0 Urinary tract infection, site not specified (principal)

== ENCOUNTER → 2022-11-17 | Outpatient (CLI) | payer OTHER | LOC: M RAD 10:38 | PROVIDERS: ATTEND Otolaryngology | DX: H93.A2 Pulsatile tinnitus, left ear (principal) ==

== ENCOUNTER → 2022-12-31 | Outpatient (CLI) | payer OTHER ==
[~2022-12-31] MED LIST changes: +GASTROGRAFIN SOLUTION 30ML As Ordered ONE; +PROHANCE 279.3MG/ML 15ML VIAL As Ordered ONE; +PROHANCE 279.3MG/ML 5ML VIAL As Ordered ONE
== END ==
LOC: M RAD 14:31
PROVIDERS: ATTEND Otolaryngology
DX: H93.A2 Pulsatile tinnitus, left ear (principal); R42 Dizziness and giddiness
CPT/HCPCS: 70544; 70553; A9576; Q9963

== ENCOUNTER 2024-06-06 11:44 | Observation (INO) | payer OTHER ==
[~2024-06-06] VITALS: Ht 160 cm; Wt 131.2 kg
[~2024-06-06 11:44] MED LIST changes: +ACET250T18 PO; -ACET250T2 PO; -GASTROGRAFIN SOLUTION 30ML As Ordered ONE; -PROHANCE 279.3MG/ML 15ML VIAL As Ordered ONE; -PROHANCE 279.3MG/ML 5ML VIAL As Ordered ONE
[2024-06-06] MEDS ORDERED: BENZ-18 PO (12:02)
[2024-06-06] MEDS: ALBUTEROL SULFATE 2.5MG/0.5ML INH NEB SOLN NEB ONE (14:19)
[2024-06-06 14:33] LABS: BASO # 0.1 10^3/uL (0.0-0.2); BASO % 0.5 % (0.0-1.0); EOS # 0.2 10^3/uL (0.0-0.5); EOS % 1.4 % (0.0-3.0); HEMATOCRIT 34.4 % (36.0-47.0); HEMOGLOBIN 11.7 g/dl (12.0-15.5); LYMPH # 1.9 10^3/uL (1.5-5.0); LYMPH % 17.8 % (24.0-44.0); MEAN CORPUSCULAR HEMOGLOBIN 29.3 pg (27.0-33.0); MEAN CORPUSCULAR VOLUME 86.2 fl (80.0-96.0); MONO # 0.6 10^3/uL (0.0-0.8); MONO % 5.3 % (2.0-8.0); NEUTROPHILS % 73.7 % (36.0-66.0); PLATELET COUNT, AUTOMATED 353 10^3/uL (150-450); RED BLOOD COUNT 3.99 10^6/uL (4.00-5.40); WHITE BLOOD COUNT 10.8 10^3/uL (4.0-10.0)
[2024-06-06] MEDS ORDERED: ISOVUE-370 76% 100ML VIAL As Ordered ONE (15:59)
[2024-06-06] MEDS: AZITHROMYCIN INJ 500 MG, VIAL MATE ADAPTER 1 EACH in NS 250 ML IV ONE (17:04)
[2024-06-06] MEDS ORDERED: ALBU8.5H INH (17:18)
[2024-06-06] MEDS ORDERED: CETI-24 PO (17:18)
[2024-06-06] MEDS ORDERED: HOME MED LIST COMPLETE! XX SCH (17:20)
[2024-06-06] MEDS ORDERED: MAALOX 30 ML SUSP *UDC PO PRN (17:25)
[2024-06-06] MEDS ORDERED: ACETAMINOPHEN TAB 650MG DOSE (2X325MG) PO PRN (17:25)
[2024-06-06] MEDS ORDERED: MOM 30ML SUSPENSION UDC PO PRN (17:25)
[2024-06-06] MEDS ORDERED: ALBUTEROL 90 MCG/ACT 8GM HFA INHALER INH PRN (17:40)
[2024-06-06] MEDS: POTASSIUM CHLORIDE 10MEQ SR TABLET PO ONE (18:17)
[2024-06-06] MEDS: LevoFLOXacin IV 750 MG in IV 1 EA IV SCH (18:17)
[2024-06-06] MEDS: methylPREDNISolone 40MG 1ML VIAL IV SCH (18:17)
[2024-06-06] MEDS: NS 1,000 ML IV SCH (18:17)
[2024-06-06 18:48] LABS: BLOOD UREA NITROGEN 10 MG/DL (9-23); CALCIUM LEVEL 8.2 MG/DL (8.5-10.1); CARBON DIOXIDE LEVEL 32 MMOL/L (20-31); CHLORIDE LEVEL 104 MMOL/L (98-107); CREATININE FOR GFR 0.81 MG/DL (0.55-1.30); GLOMERULAR FILTRATION RATE > 60.0 (>60); GLUCOSE, FASTING 95 MG/DL (60-100); POTASSIUM SERUM 3.6 MMOL/L (3.5-5.1); SODIUM LEVEL 139 MMOL/L (136-145)
[2024-06-06] MEDS: guaiFENesin ER TABLET 600 MG TAB PO SCH (22:31)
[2024-06-06] MEDS: DOCUSATE SODIUM 100MG CAPSULE PO SCH (22:31)
[2024-06-07] VITALS (9 sets, daily range): BP systolic 120–157; BP diastolic 58–76; TEMP 97.4–98.5; O2SAT 84–96
[2024-06-07] MEDS: HEPARIN SOD (PORCINE) 5000UNITS/ML 1ML VIAL/SYRINGE SC SCH (05:17)
[2024-06-07 06:32] LABS: BASO % 0.2 % (0.0-1.0); HEMATOCRIT 41.4 % (36.0-47.0); HEMOGLOBIN 13.2 g/dl (12.0-15.5); LYMPH # 1.1 10^3/uL (1.5-5.0); LYMPH % 11.5 % (24.0-44.0); MEAN CORPUSCULAR HEMOGLOBIN 26.3 pg (27.0-33.0); MEAN CORPUSCULAR VOLUME 82.5 fl (80.0-96.0); MONO # 0.1 10^3/uL (0.0-0.8); MONO % 1.5 % (2.0-8.0); NEUTROPHILS % 85.1 % (36.0-66.0); PLATELET COUNT, AUTOMATED 291 10^3/uL (150-450); RED BLOOD COUNT 5.02 10^6/uL (4.00-5.40); WHITE BLOOD COUNT 9.4 10^3/uL (4.0-10.0)
[2024-06-07 06:34] LABS: MEAN CORPUSCULAR HGB CONC 31.9 g/dl (32.0-36.5)
[2024-06-07 06:38] LABS: BLOOD UREA NITROGEN 11 MG/DL (9-23); CALCIUM LEVEL 8.8 MG/DL (8.5-10.1); CARBON DIOXIDE LEVEL 28 MMOL/L (20-31); CHLORIDE LEVEL 107 MMOL/L (98-107); CREATININE FOR GFR 0.72 MG/DL (0.55-1.30); GLOMERULAR FILTRATION RATE > 60.0 (>60); GLUCOSE, FASTING 147 MG/DL (60-100); MAGNESIUM LEVEL 2.3 MG/DL (1.8-2.4); POTASSIUM SERUM 4.6 MMOL/L (3.5-5.1); SODIUM LEVEL 140 MMOL/L (136-145)
[2024-06-07] MEDS: CETIRIZINE (ZyrTEC) 10 MG TAB PO SCH (09:13)
[2024-06-07 10:07] LABS: PROCALCITONIN 0.05 ng/ml
[2024-06-07 10:38] LABS: PROCALCITONIN 0.06 ng/ml
[2024-06-07] MEDS: predniSONE 20 MG TAB PO SCH (12:58)
[2024-06-07] MEDS: LevoFLOXacin 750 MG TABLET PO SCH (18:26)
[2024-06-08] VITALS (7 sets, daily range): BP systolic 122–124; BP diastolic 58–60; TEMP 98.1–98.3; O2SAT 92–96
[2024-06-08 07:42] LABS: BASO % 0.2 % (0.0-1.0); EOS % 0.1 % (0.0-3.0); HEMATOCRIT 28.1 % (36.0-47.0); HEMOGLOBIN 11.1 g/dl (12.0-15.5); LYMPH # 2.7 10^3/uL (1.5-5.0); LYMPH % 15.1 % (24.0-44.0); MEAN CORPUSCULAR HEMOGLOBIN 35.1 pg (27.0-33.0); MEAN CORPUSCULAR VOLUME 88.9 fl (80.0-96.0); MONO # 0.8 10^3/uL (0.0-0.8); MONO % 4.6 % (2.0-8.0); NEUTROPHILS # 13.8 10^3/uL (1.5-8.5); NEUTROPHILS % 77.5 % (36.0-66.0); PLATELET COUNT, AUTOMATED 442 10^3/uL (150-450); RED BLOOD COUNT 3.16 10^6/uL (4.00-5.40); WHITE BLOOD COUNT 17.8 10^3/uL (4.0-10.0)
[2024-06-08 08:04] LABS: BLOOD UREA NITROGEN 18 MG/DL (9-23); CALCIUM LEVEL 9.2 MG/DL (8.5-10.1); CARBON DIOXIDE LEVEL 31 MMOL/L (20-31); CHLORIDE LEVEL 107 MMOL/L (98-107); CREATININE FOR GFR 0.82 MG/DL (0.55-1.30); GLOMERULAR FILTRATION RATE > 60.0 (>60); GLUCOSE, FASTING 120 MG/DL (60-100); MAGNESIUM LEVEL 2.2 MG/DL (1.8-2.4); POTASSIUM SERUM 4.6 MMOL/L (3.5-5.1); SODIUM LEVEL 141 MMOL/L (136-145)
[2024-06-08 08:14] LABS: MEAN CORPUSCULAR HGB CONC 39.5 g/dl (32.0-36.5)
[2024-06-08] MEDS ORDERED: LEVO1TAB40 PO (08:36)
[2024-06-08] MEDS ORDERED: MUCI600T31 PO (08:36)
[2024-06-08] MEDS ORDERED: PRED10TA2 PO (08:36)
== END 2024-06-08 11:35 | disposition home or self-care (01) ==
LOC: M ED 11:44 → M ED INP 11:45 → M PCU 06-07 00:17
PROVIDERS: ADMIT Internal Medicine; ATTEND Internal Medicine
DX: J18.9 Pneumonia, unspecified organism (principal); J45.909 Unspecified asthma, uncomplicated; E87.6 Hypokalemia; D72.829 Elevated white blood cell count, unspecified; D64.9 Anemia, unspecified; J30.9 Allergic rhinitis, unspecified; G93.2 Benign intracranial hypertension; Z98.84 Bariatric surgery status; Z79.52 Long term (current) use of systemic steroids; Z91.040 Latex allergy status; Z79.899 Other long term (current) drug therapy; E28.2 Polycystic ovarian syndrome; L68.0 Hirsutism; N94.10 Unspecified dyspareunia; E66.01 Morbid (severe) obesity due to excess calories; E55.9 Vitamin D deficiency, unspecified; M47.896 Other spondylosis, lumbar region; K90.41 Non-celiac gluten sensitivity; E88.810 Metabolic syndrome
CPT/HCPCS: 36415; 71045; 71275; 80047; 80048; 83605; 83735; 84145; 85025; 86140; 87040; 87486; 87581; 87633; 87798; 93005; 93306; 96361; 96365; 96367; 96372; 96375; 96376; 99285; J0456; J1956; J2919; J7512; Q9967